=== PATIENT | female | born 1955 | race Caucasian/White ===

== ENCOUNTER → 2017-06-14 | Outpatient (CLI) | payer OTHER ==
[~2017-06-14] MED LIST: ACET325 PO; ADAL40PEN; AMOCLA500 PO; AMOCLA875 PO; ASACOL HD800 MG; ASACOL HD800 MG PO; ASPI81CH PO; ATOR20 PO; BASAGLAR K100 UNIT/1 SC; BUDE200IP; BUDE32NIS; CEFT400 PO; CEFU500 PO; CIPR500 PO; CIPR750 PO; CIPRO500 MG PO; COLAZOL PO; CYCL10 PO; Colace100 MG PO; DELZICOL400 MG PO; DIPATR PO; Dyazide 37.5-21 EACH PO; FEXO60 PO; FLUSAL2505 IH; FOLI1 PO; Flagyl500 MG PO; GATIFLOXACIN; HYDACE5 PO; HYOS.125 SL; Hair, Skin & N1 EACH PO; IBUP200; IRON PO; LEVEMIR FL100 UNIT/1; LEVFLO500 PO; LOVA40; Lialda1.2 GM PO; Lisinopril2.5 MG PO; Lovastatin20 MG PO; MESA400ER; MESA400ER PO; METCAR500 PO; METF500C PO; METO50 PO; METR500 PO; METTREX2.5 PO; MICARDIS/HCTZ; MOMENI; MULVITA PO; NAPR375 PO; NEBI10 PO; NEBI5 PO; Novolog Fl100 UNIT/1; ONDA4ODT PO; OXYACE5T PO; OXYC10ER PO; OXYC20ER PO; POTCHL10ER PO; PRED10 PO; PRED20 PO; PRED5 PO; PROM25 PO; Percocet 5-3251 EACH PO; Prednisone20 MG PO; RXOXYACE PO; RXPROM25S PR; Robaxin500 MG PO; Roxicodone5 MG PO; SULTRIDS PO; TRIHYD253A PO; TRIHYD253B PO; UCERIS9 MG PO; WATER PILL; Zofran8 MG PO; [UNRECOGNIZED DRUG - OTHER]; [UNRECOGNIZED DRUG - OTHER]; [UNRECOGNIZED DRUG - OTHER]; [UNRECOGNIZED DRUG - REMARK]; [UNRECOGNIZED DRUG - REMARK]
[2017-06-14 17:15] LABS: BASOPHILS ABSOLUTE AUTO 0.09 K/mm3 (0.00-0.23); BASOPHILS PERCENT AUTO 1 % (0-2); EOSINOPHILS ABSOLUTE AUTO 0.27 K/mm3 (0.00-0.68); EOSINOPHILS PERCENT AUTO 2 % (0-6); Hematocrit 32.1 % (33.0-51.0); Hemoglobin 9.8 g/dL (11.5-16.0); IMMATURE GRAN ABSOLUTE AUTO 0.08 K/mm3 (0.00-0.10); IMMATURE GRAN PERCENT AUTO 1 % (0-1); LYMPHOCYTES ABSOLUTE AUTO 4.17 K/mm3 (0.84-5.20); LYMPHOCYTES PERCENT AUTO 28 % (21-46); MONOCYTES PERCENT AUTO 9 % (4-13); Mean Corpuscular HGB 24.8 pg (26.0-34.0); Mean Corpuscular HGB Conc 30.5 g/dL (31.5-36.5); Mean Corpuscular Volume 81 fL (80-100); Mean Platelet Volume 9.7 fL (9.1-12.4); NEUTROPHILS ABSOLUTE AUTO 9.04 K/mm3 (1.96-9.15); NEUTROPHILS PERCENT AUTO 60 % (41-73); Platelet Count 502 K/mm3 (150-400); RDW Coefficient Variation 19.2 % (11.7-14.2); RDW Standard Deviation 55.9 fL (35.1-46.3); Red Blood Cell Count 3.95 M/mm3 (3.80-5.20); White Blood Cell Count 15.05 K/mm3 (4.00-11.30)
[2017-06-14 17:43] LABS: Anion Gap 10 mmol/L (6-16); Blood Urea Nitrogen 19 mg/dL (8-24); Bun/Creatinine Ratio 19.5 (12.0-20.0); CO2, Blood 23 mmol/L (21-32); Calcium, Blood 9.7 mg/dL (8.5-10.1); Chloride, Blood 102 mmol/L (98-108); Creatinine, Blood 0.97 mg/dL (0.40-1.00); Glomerular Filtration Rate >60 (60-); Glucose, Blood 114 mg/dL (70-99); Potassium, Blood 3.8 mmol/L (3.5-5.5); Sodium, Blood 135 mmol/L (136-145)
== END ==
LOC: OLS 16:11
PROVIDERS: Podiatrist Foot & Ankle Surgery
DX: Z01.818 Encounter for other preprocedural examination (principal); D17.9 Benign lipomatous neoplasm, unspecified; S93.492D Sprain of other ligament of left ankle, subsequent encounter
CPT/HCPCS: 36415; 80048; 85025

== ENCOUNTER 2017-06-23 | Day surgery (SDC) | END 2017-06-23 12:27 | disposition home or self-care (01) ==

== ENCOUNTER → 2017-10-16 | Outpatient (CLI) | payer OTHER ==
[~2017-10-16] MED LIST changes: -ASPI81CH PO; +BASAGLAR K100 UNIT/1; -BASAGLAR K100 UNIT/1 SC; -Dyazide 37.5-21 EACH PO; -Hair, Skin & N1 EACH PO; +Lisinopril2.5 MG; -Lisinopril2.5 MG PO; +METF500; -METF500C PO
[2017-10-16 13:21] LABS: Albumin, Blood 3.1 g/dL (3.4-5.0); Albumin/Globulin Ratio 0.5 (0.8-1.8); Bilirubin, Total 0.3 mg/dL (0.1-1.0); Calcium, Blood 9.4 mg/dL (8.5-10.1); Creatinine, Blood 1.72 mg/dL (0.40-1.00); Globulin, Blood 5.8 g/dL (2.2-4.0); Potassium, Blood 3.8 mmol/L (3.5-5.5); Total Protein, Blood 8.9 g/dL (6.4-8.2)
[2017-10-16 13:44] LABS: BASOPHILS ABSOLUTE AUTO 0.09 K/mm3 (0.00-0.23); BASOPHILS PERCENT AUTO 1 % (0-2); EOSINOPHILS ABSOLUTE AUTO 0.34 K/mm3 (0.00-0.68); EOSINOPHILS PERCENT AUTO 2 % (0-6); Hematocrit 28.8 % (33.0-51.0); Hemoglobin 8.6 g/dL (11.5-16.0); IMMATURE GRAN ABSOLUTE AUTO 0.27 K/mm3 (0.00-0.10); IMMATURE GRAN PERCENT AUTO 2 % (0-1); LYMPHOCYTES ABSOLUTE AUTO 4.57 K/mm3 (0.84-5.20); LYMPHOCYTES PERCENT AUTO 30 % (21-46); MONOCYTES ABSOLUTE AUTO 1.85 K/mm3 (0.16-1.47); MONOCYTES PERCENT AUTO 12 % (4-13); Mean Corpuscular HGB 21.8 pg (26.0-34.0); Mean Corpuscular HGB Conc 29.9 g/dL (31.5-36.5); Mean Corpuscular Volume 73 fL (80-100); NEUTROPHILS ABSOLUTE AUTO 8.32 K/mm3 (1.96-9.15); NEUTROPHILS PERCENT AUTO 54 % (41-73); Platelet Count 774 K/mm3 (150-400); RDW Standard Deviation 46.8 fL (35.1-46.3); Red Blood Cell Count 3.95 M/mm3 (3.80-5.20); White Blood Cell Count 15.44 K/mm3 (4.00-11.30)
== END ==
LOC: LAB EV 13:00 → LAB SHORT 13:00
PROVIDERS: Physician Assistant
DX: N39.0 Urinary tract infection, site not specified (principal)
CPT/HCPCS: 80053; 83690; 85025

== ENCOUNTER → 2017-10-17 | Outpatient (CLI) | payer OTHER ==
[2017-10-17 16:38] LABS: BASOPHILS ABSOLUTE AUTO 0.08 K/mm3 (0.00-0.23); BASOPHILS PERCENT AUTO 1 % (0-2); EOSINOPHILS ABSOLUTE AUTO 0.25 K/mm3 (0.00-0.68); EOSINOPHILS PERCENT AUTO 2 % (0-6); Hematocrit 26.3 % (33.0-51.0); Hemoglobin 8.1 g/dL (11.5-16.0); IMMATURE GRAN ABSOLUTE AUTO 0.44 K/mm3 (0.00-0.10); IMMATURE GRAN PERCENT AUTO 3 % (0-1); LYMPHOCYTES ABSOLUTE AUTO 3.79 K/mm3 (0.84-5.20); LYMPHOCYTES PERCENT AUTO 24 % (21-46); MONOCYTES ABSOLUTE AUTO 1.51 K/mm3 (0.16-1.47); MONOCYTES PERCENT AUTO 10 % (4-13); Mean Corpuscular HGB Conc 30.8 g/dL (31.5-36.5); Mean Corpuscular Volume 71 fL (80-100); Mean Platelet Volume 8.8 fL (9.1-12.4); NEUTROPHILS PERCENT AUTO 61 % (41-73); Platelet Count 665 K/mm3 (150-400); RDW Coefficient Variation 17.6 % (11.7-14.2); Red Blood Cell Count 3.69 M/mm3 (3.80-5.20); White Blood Cell Count 15.67 K/mm3 (4.00-11.30)
[2017-10-17 16:43] LABS: Bun/Creatinine Ratio 7.7 (12.0-20.0); Calcium, Blood 8.8 mg/dL (8.5-10.1); Creatinine, Blood 1.17 mg/dL (0.40-1.00); Potassium, Blood 3.7 mmol/L (3.5-5.5)
== END ==
LOC: LAB SHORT 16:34
PROVIDERS: Family Medicine
DX: K52.9 Noninfective gastroenteritis and colitis, unspecified (principal)
CPT/HCPCS: 80048; 85025

== ENCOUNTER 2017-11-14 00:11 | Day surgery (SDC) | payer OTHER ==
[~2017-11-14 00:11] MED LIST changes: -BASAGLAR K100 UNIT/1; +BASAGLAR K100 UNIT/1 SC; -Lisinopril2.5 MG; +Lisinopril2.5 MG PO; -METF500; +METF500C PO
[2017-11-14] MEDS ORDERED: ASPI81CH PO (14:00)
[2017-11-14] MEDS ORDERED: Dyazide 37.5-21 EACH PO (14:02)
[2017-11-14] MEDS ORDERED: Hair, Skin & N1 EACH PO (14:03)
== END 2017-11-14 14:37 | disposition home or self-care (01) ==
LOC: ATC 00:11
DX: D50.9 Iron deficiency anemia, unspecified (principal); E11.9 Type 2 diabetes mellitus without complications; Z79.899 Other long term (current) drug therapy; Z79.4 Long term (current) use of insulin; Z88.2 Allergy status to sulfonamides; Z88.1 Allergy status to other antibiotic agents; Z88.6 Allergy status to analgesic agent
CPT/HCPCS: 96365; J2916

== ENCOUNTER → 2017-12-07 | Outpatient (CLI) | payer OTHER ==
[~2017-12-07] MED LIST changes: +ASPI81CH PO; +Dyazide 37.5-21 EACH PO; +Hair, Skin & N1 EACH PO
== END | disposition home or self-care (01) ==
LOC: LAB SHORT 16:07 → LAB EV 16:07
DX: N39.0 Urinary tract infection, site not specified (principal)
CPT/HCPCS: 87077; 87086; 87186

== ENCOUNTER → 2019-02-27 | Outpatient (CLI) | payer OTHER | END | disposition home or self-care (01) | LOC: LAB 09:51 → LAB SHORT 09:51 | DX: R30.0 Dysuria (principal) | CPT/HCPCS: 87077; 87086; 87186 ==

== ENCOUNTER → 2019-07-08 | Outpatient (CLI) | payer OTHER | END | disposition home or self-care (01) | LOC: LAB SHORT 16:17 → LAB 16:17 | DX: R82.79 Other abnormal findings on microbiological examination of urine (principal) | CPT/HCPCS: 87077; 87086; 87186 ==

== ENCOUNTER → 2020-03-09 | Outpatient (CLI) | payer OTHER | LOC: LAB 12:02 → LAB SHORT 12:02 | DX: R82.998 Other abnormal findings in urine (principal) | CPT/HCPCS: 87077; 87086; 87186 ==

== ENCOUNTER → 2021-05-27 | Outpatient (CLI) | payer OTHER | LOC: LAB SHORT 15:26 | DX: R30.0 Dysuria (principal); R30.9 Painful micturition, unspecified | CPT/HCPCS: 87077; 87086; 87186 ==

== ENCOUNTER → 2021-08-28 | Outpatient (CLI) | payer OTHER ==
[2021-08-28 14:13] LABS: C DIFFICILE DNA NEGATIVE (Negative)
== END ==
LOC: LAB FUT 08:11 → LAB 08:11 → LAB FUT 08-27 11:40
PROVIDERS: Internal Medicine
DX: K51.011 Ulcerative (chronic) pancolitis with rectal bleeding (principal)
CPT/HCPCS: 87493

== ENCOUNTER 2021-09-06 13:48 | Emergency (ER) | payer OTHER ==
[~2021-09-06] VITALS: Ht 154.9 cm; Wt 85.3 kg
[2021-09-06 14:57] LABS: BASOPHILS PERCENT AUTO 0 % (0-2); EOSINOPHILS ABSOLUTE AUTO 0.03 K/mm3 (0.00-0.68); EOSINOPHILS PERCENT AUTO 0 % (0-6); Hematocrit 29.2 % (33.0-51.0); Hemoglobin 9.6 g/dL (11.5-16.0); IMMATURE GRAN ABSOLUTE AUTO 0.81 K/mm3 (0.00-0.10); IMMATURE GRAN PERCENT AUTO 3 % (0-1); LYMPHOCYTES ABSOLUTE AUTO 1.92 K/mm3 (0.84-5.20); LYMPHOCYTES PERCENT AUTO 8 % (21-46); MONOCYTES PERCENT AUTO 9 % (4-13); Mean Corpuscular HGB 29.2 pg (26.0-34.0); Mean Corpuscular HGB Conc 32.9 g/dL (31.5-36.5); Mean Corpuscular Volume 89 fL (80-100); Mean Platelet Volume 8.4 fL (9.1-12.4); NEUTROPHILS ABSOLUTE AUTO 18.69 K/mm3 (1.96-9.15); NEUTROPHILS PERCENT AUTO 79 % (41-73); Platelet Count 681 K/mm3 (150-400); RDW Coefficient Variation 13.7 % (11.7-14.2); RDW Standard Deviation 44.6 fL (35.1-46.3); Red Blood Cell Count 3.29 M/mm3 (3.80-5.20); White Blood Cell Count 23.65 K/mm3 (4.00-11.30)
[2021-09-06 15:02] LABS: Alanine Aminotransfer (ALT/SGP 37 U/L (12-78); Albumin/Globulin Ratio 0.5 (0.8-1.8); Alk Phos 113 U/L (50-136); Anion Gap 9 mmol/L (6-16); Aspartate Aminotrans (AST/SGOT 17 U/L (12-37); Bilirubin, Total 0.5 mg/dL (0.1-1.0); Blood Urea Nitrogen 19 mg/dL (8-24); Bun/Creatinine Ratio 20.9 (12.0-20.0); CO2, Blood 24 mmol/L (21-32); Calcium, Blood 9.8 mg/dL (8.5-10.1); Chloride, Blood 96 mmol/L (98-108); Creatinine, Blood 0.91 mg/dL (0.40-1.00); Globulin, Blood 5.5 g/dL (2.2-4.0); Glomerular Filtration Rate >60 (60-); Glucose, Blood 117 mg/dL (70-99); Sodium, Blood 129 mmol/L (136-145); Total Protein, Blood 8.5 g/dL (6.4-8.2)
[2021-09-06] MEDS ORDERED: Prednisone20 MG PO (19:58)
== END 2021-09-06 20:48 | disposition home or self-care (01) ==
LOC: ER 13:48
PROVIDERS: Physician Assistant
DX: K51.90 Ulcerative colitis, unspecified, without complications (principal); E87.1 Hypo-osmolality and hyponatremia; D64.9 Anemia, unspecified; D75.839 Thrombocytosis, unspecified; E11.9 Type 2 diabetes mellitus without complications; I10 Essential (primary) hypertension; Z79.82 Long term (current) use of aspirin; Z79.4 Long term (current) use of insulin; Z79.899 Other long term (current) drug therapy; Z88.8 Allergy status to other drugs, medicaments and biological substances; Z88.6 Allergy status to analgesic agent; Z88.1 Allergy status to other antibiotic agents; Z88.5 Allergy status to narcotic agent; Z91.018 Allergy to other foods; Z87.891 Personal history of nicotine dependence
CPT/HCPCS: 74177; 80053; 83690; 85025; J7030; Q9967

== ENCOUNTER 2021-09-08 10:07 | Inpatient (IN) | payer OTHER ==
[~2021-09-08] VITALS: Ht 154.9 cm; Wt 85.7 kg
[2021-09-08 11:15] LABS: BASOPHILS ABSOLUTE AUTO 0.07 K/mm3 (0.00-0.23); BASOPHILS PERCENT AUTO 0 % (0-2); EOSINOPHILS PERCENT AUTO 0 % (0-6); Hematocrit 26.3 % (33.0-51.0); Hemoglobin 8.9 g/dL (11.5-16.0); IMMATURE GRAN ABSOLUTE AUTO 0.72 K/mm3 (0.00-0.10); IMMATURE GRAN PERCENT AUTO 3 % (0-1); LYMPHOCYTES ABSOLUTE AUTO 0.47 K/mm3 (0.84-5.20); LYMPHOCYTES PERCENT AUTO 2 % (21-46); MONOCYTES PERCENT AUTO 9 % (4-13); Mean Corpuscular HGB 29.2 pg (26.0-34.0); Mean Corpuscular HGB Conc 33.8 g/dL (31.5-36.5); Mean Corpuscular Volume 86 fL (80-100); Mean Platelet Volume 8.3 fL (9.1-12.4); NEUTROPHILS ABSOLUTE AUTO 18.27 K/mm3 (1.96-9.15); NEUTROPHILS PERCENT AUTO 85 % (41-73); Platelet Count 561 K/mm3 (150-400); RDW Coefficient Variation 13.7 % (11.7-14.2); RDW Standard Deviation 42.9 fL (35.1-46.3); Red Blood Cell Count 3.05 M/mm3 (3.80-5.20); White Blood Cell Count 21.53 K/mm3 (4.00-11.30)
[2021-09-08 11:37] LABS: Albumin, Blood 2.6 g/dL (3.4-5.0); Albumin/Globulin Ratio 0.5 (0.8-1.8); Bilirubin, Total 0.6 mg/dL (0.1-1.0); Bun/Creatinine Ratio 13.3 (12.0-20.0); Calcium, Blood 8.9 mg/dL (8.5-10.1); Creatinine, Blood 0.75 mg/dL (0.40-1.00); Globulin, Blood 5.1 g/dL (2.2-4.0); Potassium, Blood 3.3 mmol/L (3.5-5.5); Total Protein, Blood 7.7 g/dL (6.4-8.2)
--- NOTE | 2021-09-08 17:07 | NUR ---
THE PATIENT WAS BROUGHT TO DAY SURGERY FOR HER PROCEDURE.
--- NOTE | 2021-09-08 18:02 | NUR ---
09/08/21 1802 Matt Doran History, Chart, Medications and Allergies reviewed before start of procedure. Patient confirms NPO status and agrees with scheduled surgery. 3-LEAD EKG REVIEWED WITH PHYSICIAN PRIOR TO START OF PROCEDURE. MONITOR INTACT WITH CONTINUOUS PULSE OXIMETRY AND INTERMITTENT BP. PATIENT DETERMINED TO BE ASA APPROPRIATE FOR PROPOFOL SEDATION PRIOR TO START OF PROCEDURE BY DR. OROURKE
[2021-09-08 19:04] LABS: Hematocrit 26.6 % (33.0-51.0); Hemoglobin 8.8 g/dL (11.5-16.0)
[2021-09-09] MEDS ORDERED: MESALAMINE 1.2 GM PO (01:55)
[2021-09-09] MEDS ORDERED: XELJANZ10 MG PO (01:55)
[2021-09-09] MEDS ORDERED: PRED20 PO (01:57)
[2021-09-09 05:09] LABS: BASOPHILS ABSOLUTE AUTO 0.03 K/mm3 (0.00-0.23); BASOPHILS PERCENT AUTO 0 % (0-2); EOSINOPHILS PERCENT AUTO 0 % (0-6); Hematocrit 25.4 % (33.0-51.0); Hemoglobin 8.3 g/dL (11.5-16.0); IMMATURE GRAN ABSOLUTE AUTO 0.64 K/mm3 (0.00-0.10); IMMATURE GRAN PERCENT AUTO 4 % (0-1); LYMPHOCYTES ABSOLUTE AUTO 0.37 K/mm3 (0.84-5.20); LYMPHOCYTES PERCENT AUTO 2 % (21-46); MONOCYTES ABSOLUTE AUTO 0.83 K/mm3 (0.16-1.47); MONOCYTES PERCENT AUTO 5 % (4-13); Mean Corpuscular HGB 29.2 pg (26.0-34.0); Mean Corpuscular HGB Conc 32.7 g/dL (31.5-36.5); Mean Corpuscular Volume 89 fL (80-100); Mean Platelet Volume 8.2 fL (9.1-12.4); NEUTROPHILS ABSOLUTE AUTO 15.65 K/mm3 (1.96-9.15); NEUTROPHILS PERCENT AUTO 89 % (41-73); Platelet Count 550 K/mm3 (150-400); RDW Coefficient Variation 13.9 % (11.7-14.2); RDW Standard Deviation 45.2 fL (35.1-46.3); Red Blood Cell Count 2.84 M/mm3 (3.80-5.20); White Blood Cell Count 17.52 K/mm3 (4.00-11.30)
[2021-09-09 05:40] LABS: Albumin, Blood 2.4 g/dL (3.4-5.0); Albumin/Globulin Ratio 0.5 (0.8-1.8); Bilirubin, Total 0.5 mg/dL (0.1-1.0); Bun/Creatinine Ratio 15.1 (12.0-20.0); C-REACTIVE PROTEIN, EXT RANGE 17.9 mg/dL (0.000-0.300); Calcium, Blood 8.5 mg/dL (8.5-10.1); Creatinine, Blood 0.66 mg/dL (0.40-1.00); Globulin, Blood 4.6 g/dL (2.2-4.0); Magnesium, Blood 2.5 mg/dL (1.6-2.4); Potassium, Blood 4.1 mmol/L (3.5-5.5)
--- NOTE | 2021-09-09 05:47 | NUR ---
SHIFT SUMMARY PT AOX4. REPORTS MORE PAIN ON HER BACK (CHRONIC), MANAGED WITH FENTANYL X1 T/O SHIFT LAST NIGHT. PT ALSO C/O NAUSEA AT THE BEGINNING OF SHIFT, MEDICATED WITH ZOFRAN ONCE T/O SHIFT. PT SLEPT GOOD OVERNIGHT. KCL AND MAG WAS INFUSED LAST NIGHT. CBG CHANGED TO AC/HS. HEPARIN AND SOLUMEDROL ADMINSTERED AT MIDNIGHT. TOLERATING PO INTAKE. DENIES N/V THIS MORNING. IV FLUIDS INFUSING. PT HAD BM, APPEARS TO BE BROWN/DARK BROWN LIQ STOOL WITH SOME TINGED OF BLOOD. STOOL ALSO APPEARS TO HAVE SOME SMALL TISSUE MIX WITH LIQ BM. CALL LIGHT WTIHIN REACH. WILL PROVIDE REPORT TO ONCOMING NURSE.
--- NOTE | 2021-09-09 18:08 | NUR ---
SHIFT SUMMARY: PATIENT ALERT AND ORIENTED X4. SHE HAS BEEN IN CONSTANT PAIN THIS SHIFT IN HER LOWER BACK. SHE WAS MEDICATED WITH FENTANYL AND A LIDOCAINE PATCH. SHE STATED THAT THE FENTANYL DID NOT WORK BUT THE PATCH WAS HELPING A LITTLE. PATIENT HAD 3 SMALL BOWEL MOVEMENTS WITH SCANT AMOUNTS OF BLOOD IN EACH. PATIENT STATED SHE HAD SOME NAUSEA AFTER EACH BOWEL MOVEMENT. SHE WAS MEDICATED WITH ZOFRAN WHICH SEEMED TO HELP. SHE IS COOPERATE WITH CARE AND WILL CONTINUE TO MONITOR. CALL LIGHT IN REACH. BED IN LOWEST POSITION.
--- NOTE | 2021-09-10 05:00 | NUR ---
AT SHIFT CHANGE DURING BEDSIDE REPORT, PT WAS NOTED TO HAVE UNMANAGED CHRONIC BACK PAIN. PT STATED SHE HAS HAD SUCCESS WITH PERCOCET IN THE PAST. MD CHILLER TECHNICIAN NOTIFIED AND NEW ORDERS PLACED. PT REPORTS RELIEF WITH MEDICATION. STOOL SAMPLE NEEDED, UNABLE TO COLLECT DUE TO URINE STOOL MIX IN HAT.
[2021-09-10 05:17] LABS: BASOPHILS ABSOLUTE AUTO 0.06 K/mm3 (0.00-0.23); BASOPHILS PERCENT AUTO 0 % (0-2); EOSINOPHILS PERCENT AUTO 0 % (0-6); Hematocrit 25.9 % (33.0-51.0); Hemoglobin 8.3 g/dL (11.5-16.0); IMMATURE GRAN ABSOLUTE AUTO 0.77 K/mm3 (0.00-0.10); IMMATURE GRAN PERCENT AUTO 5 % (0-1); LYMPHOCYTES ABSOLUTE AUTO 0.61 K/mm3 (0.84-5.20); LYMPHOCYTES PERCENT AUTO 4 % (21-46); MONOCYTES ABSOLUTE AUTO 1.35 K/mm3 (0.16-1.47); MONOCYTES PERCENT AUTO 9 % (4-13); Mean Corpuscular HGB 28.9 pg (26.0-34.0); Mean Corpuscular Volume 90 fL (80-100); Mean Platelet Volume 8.6 fL (9.1-12.4); NEUTROPHILS ABSOLUTE AUTO 12.71 K/mm3 (1.96-9.15); NEUTROPHILS PERCENT AUTO 82 % (41-73); Platelet Count 591 K/mm3 (150-400); RDW Coefficient Variation 14.2 % (11.7-14.2); RDW Standard Deviation 46.7 fL (35.1-46.3); Red Blood Cell Count 2.87 M/mm3 (3.80-5.20)
[2021-09-10 05:31] LABS: Albumin, Blood 2.4 g/dL (3.4-5.0); Anion Gap 8 mmol/L (6-16); Blood Urea Nitrogen 16 mg/dL (8-24); Bun/Creatinine Ratio 21.8 (12.0-20.0); CO2, Blood 26 mmol/L (21-32); Chloride, Blood 101 mmol/L (98-108); Creatinine, Blood 0.73 mg/dL (0.40-1.00); Glomerular Filtration Rate 91 (60-); Glucose, Blood 213 mg/dL (70-99); Phosphorus, Blood 1.8 mg/dL (2.5-4.9); Potassium, Blood 4.4 mmol/L (3.5-5.5); Sodium, Blood 135 mmol/L (136-145)
[2021-09-10 06:50] LABS: Percent Saturation 38.7 % (15.0-50.0)
[2021-09-10] MEDS ORDERED: PRED20 PO (10:29)
[2021-09-10] MEDS ORDERED: LIDO700A20 TOP (10:30)
[2021-09-10] MEDS ORDERED: ONDA4ODT MM (10:32)
[2021-09-10] MEDS ORDERED: LACT PO (10:33)
[2021-09-10] MEDS ORDERED: PANT20 PO (10:34)
[2021-09-10] MEDS ORDERED: Percocet 5-3251 EACH PO (10:35)
--- NOTE | 2021-09-10 12:20 | NUR ---
DISCHARGE SUMMARY PATIENT DISCHARGED HOME. DISCHARGE PAPERWORK REVIEWED WITH PATIENT AND FAMILY. ALL NEW MEDICATIONS REVIEWED AND PRESCRIPTIONS FAXED TO [facility]. PATIENT GIVEN HARD SCRIPT FOR PERCOCET. IV D/C'D. PATIENT AND ALL BELONGINGS TAKEN VIA WHEELCHAIR TO PERSONAL CAR AND TAKEN BY TOM.
[2021-09-10 13:08] LABS: Adenovirus F 40/41 Not Detected (NOT DETECT); Astrovirus Not Detected (NOT DETECT); Campylobacter Sp Not Detected (NOT DETECT); Cryptosporidium Not Detected (NOT DETECT); Cyclospora Cayetanensis Not Detected (NOT DETECT); E. Coli O157 Not Detected (NOT DETECT); Entamoeba Histolytica Not Detected (NOT DETECT); Enteroaggregative E. coli-EAEC Not Detected (NOT DETECT); Enteropathogenic E. coli-EPEC Not Detected (NOT DETECT); Enterotoxigenic E. coli-ETEC Not Detected (NOT DETECT); Giardia Lamblia Not Detected (NOT DETECT); Norovirus GI/GII Not Detected (NOT DETECT); Plesiomonas Shigelloides Not Detected (NOT DETECT); Rotavirus A Not Detected (NOT DETECT); Salmonella Sp Not Detected (NOT DETECT); Sapovirus Not Detected (NOT DETECT); Shiga Toxin-prod E. coli-STEC Not Detected (NOT DETECT); Shigella/Enteroin E. coli-EIEC Not Detected (NOT DETECT); Vibrio Cholerae Not Detected (NOT DETECT); Vibrio Sp Not Detected (NOT DETECT); Yersinia Enterocolitica Not Detected (NOT DETECT)
== END 2021-09-10 12:24 | disposition home or self-care (01) | DRG 386 ==
LOC: ER 10:07 → MEDS 13:02 → ENPENDDIS 09-10 10:22 → MEDS 09-10 12:24
PROVIDERS: Internal Medicine; Nurse Practitioner Acute Care; Physician Assistant; Student in an Organized Health Care Education/Training Program; ADMIT Internal Medicine
PROC: 0DBP8ZX Excision of Rectum, Via Natural or Artificial Opening Endoscopic, Diagnostic (ICD-10-PCS; 2021-09-08)
PROC: 0DB78ZX Excision of Stomach, Pylorus, Via Natural or Artificial Opening Endoscopic, Diagnostic (ICD-10-PCS; principal; 2021-09-08 18:45)
PROC: 0DBN8ZX Excision of Sigmoid Colon, Via Natural or Artificial Opening Endoscopic, Diagnostic (ICD-10-PCS; 2021-09-08 18:45)
DX: K51.511 Left sided colitis with rectal bleeding (principal); D62 Acute posthemorrhagic anemia; R65.10 Systemic inflammatory response syndrome (SIRS) of non-infectious origin without acute organ dysfunction; E87.1 Hypo-osmolality and hyponatremia; K42.9 Umbilical hernia without obstruction or gangrene; D75.839 Thrombocytosis, unspecified; K51.211 Ulcerative (chronic) proctitis with rectal bleeding; E11.65 Type 2 diabetes mellitus with hyperglycemia; E86.9 Volume depletion, unspecified; G89.29 Other chronic pain; M54.9 Dorsalgia, unspecified; E87.6 Hypokalemia; I10 Essential (primary) hypertension; E78.00 Pure hypercholesterolemia, unspecified; D72.829 Elevated white blood cell count, unspecified; E78.5 Hyperlipidemia, unspecified; T50.995A Adverse effect of other drugs, medicaments and biological substances, initial encounter; Z87.442 Personal history of urinary calculi; Z79.82 Long term (current) use of aspirin; Z98.890 Other specified postprocedural states; Z79.84 Long term (current) use of oral hypoglycemic drugs; Z90.49 Acquired absence of other specified parts of digestive tract; Z91.018 Allergy to other foods; Z88.8 Allergy status to other drugs, medicaments and biological substances; Z79.4 Long term (current) use of insulin; Z79.899 Other long term (current) drug therapy
CPT/HCPCS: 36415; 80053; 80069; 82652; 82728; 82947; 83540; 83550; 83735; 85014; 85018; 85025; 85651; 86140; 86850; 86900; 86901; 87507; 88305; 88341; 88342; 93005; 93010; 96365; 96375; 99285-25; A9270; J1644; J2405; J2704; J2765; J2920; J3010; J3475; J3480; J7030; J7120

== ENCOUNTER 2021-09-30 07:05 | Inpatient (IN) | payer OTHER ==
[~2021-09-30] VITALS: Ht 154.9 cm; Wt 83.1 kg
[~2021-09-30 07:05] MED LIST changes: +LACT PO; +LIDO700A20 TOP; +MESALAMINE 1.2 GM PO; +ONDA4ODT MM; +PANT20 PO; +XELJANZ10 MG PO
[2021-09-30 07:49] LABS: BASOPHILS ABSOLUTE AUTO 0.05 K/mm3 (0.00-0.23); BASOPHILS PERCENT AUTO 0 % (0-2); Hematocrit 27.5 % (33.0-51.0); Hemoglobin 8.9 g/dL (11.5-16.0); LYMPHOCYTES PERCENT AUTO 10 % (21-46); MONOCYTES ABSOLUTE AUTO 1.03 K/mm3 (0.16-1.47); MONOCYTES PERCENT AUTO 9 % (4-13); Mean Corpuscular HGB 27.1 pg (26.0-34.0); Mean Corpuscular HGB Conc 32.4 g/dL (31.5-36.5); Mean Corpuscular Volume 84 fL (80-100); Mean Platelet Volume 8.8 fL (9.1-12.4); NRBC ABSOLUTE 0.02 K/mm3 (0.00-0.02); NRBC Auto 0.2 /100 WBC (0.0-0.2); Platelet Count 521 K/mm3 (150-400); RDW Coefficient Variation 15.9 % (11.7-14.2); RDW Standard Deviation 48.4 fL (35.1-46.3); Red Blood Cell Count 3.28 M/mm3 (3.80-5.20); White Blood Cell Count 11.15 K/mm3 (4.00-11.30)
[2021-09-30 07:50] LABS: EOSINOPHILS ABSOLUTE AUTO 0.01 K/mm3 (0.00-0.68); EOSINOPHILS PERCENT AUTO 0 % (0-6); IMMATURE GRAN ABSOLUTE AUTO 0.21 K/mm3 (0.00-0.10); IMMATURE GRAN PERCENT AUTO 2 % (0-1); NEUTROPHILS ABSOLUTE AUTO 8.75 K/mm3 (1.96-9.15); NEUTROPHILS PERCENT AUTO 79 % (41-73)
[2021-09-30 08:45] LABS: Albumin, Blood 1.9 g/dL (3.4-5.0); Albumin/Globulin Ratio 0.4 (0.8-1.8); Bilirubin, Total 0.7 mg/dL (0.1-1.0); Bun/Creatinine Ratio 16.7 (12.0-20.0); Calcium, Blood 8.5 mg/dL (8.5-10.1); Creatinine, Blood 0.78 mg/dL (0.40-1.00); Potassium, Blood 2.8 mmol/L (3.5-5.5); Total Protein, Blood 6.9 g/dL (6.4-8.2)
[2021-09-30 09:16] LABS: Source, Urine Clean Catch
[2021-09-30 09:25] LABS: Bilirubin, Urine Neg (Neg); Blood, Urine 2+ (Neg); Glucose Qualitative, Urine Neg (Neg); Ketones, Urine Neg (Neg); Leukocyte Esterase, Urine 3+ (Neg); Nitrite, Urine Neg (Neg); Protein, Urine 1+ (Neg); Specific Gravity, Urine 1.005 (1.003-1.022); Urobilinogen, Urine NORM (Normal)
[2021-09-30 09:53] LABS: Appearance, Urine Clear (Clear); Color, Urine Pale Yellow (P-Yellow)
[2021-09-30 09:54] LABS: Bacteria Few /hpf; Squamous Epithelial Cells Few /hpf (Few)
--- NOTE | 2021-09-30 18:15 | NUR ---
PATIENT IS ALERT AND ORIENTED AND COOPERATIVE WITH CARE. 1PA STAND PIVOT TO THE BSC. C/O NAUSEA, MEDICATED PER EMAR. TACHYCARDIA AT 101 BPM. TOLERATING FULL LIQUID DIET. WILL CONTINUE TO MONITOR
--- NOTE | 2021-10-01 05:16 | NUR ---
PT A/O X 4. VS STABLE. PT COOPERATIVE WITH CARE. PT LAST BAG OF POTASSIUM REPLACEMENT FINISHED AWAITING AM LAB RESULTS. PT CBG WAS 246 PT GIVEN 2 UNITS HUMALOG PER Q6H S/S. IN EARLY AM PT BRIEFLY WAS [place] AND PT STATED STUFF IN EARS BUT NONE FOUND. DR. MIRANDA CONSULTED IN AM TO CHANGE SOLU MEDROL FROM 20MG TID TO 30MG Q12 FOR UC AND TO LOWER BLOOD GLUCOSE. PT IS RESTING WITH CALL LIGHT WITHIN REACH AND BED IN LOWEST POSITION.
--- NOTE | 2021-10-01 05:25 | NUR ---
BILINGUAL STUDENT TUTOR NOTES AND DOCUMENTS REVIEWED AND IN AGREEMENT
[2021-10-01] MEDS ORDERED: Lovastatin20 MG PO (07:53)
[2021-10-01] MEDS ORDERED: MESALAMINE800 MG PO (07:54)
[2021-10-01] MEDS ORDERED: DYAZIDE 37.5-21 EACH PO (07:55)
[2021-10-01] MEDS ORDERED: ORTIKOS9 M1 PO (07:56)
[2021-10-01 08:17] LABS: Albumin, Blood 1.6 g/dL (3.4-5.0); Albumin/Globulin Ratio 0.4 (0.8-1.8); Bilirubin, Total 0.4 mg/dL (0.1-1.0); Bun/Creatinine Ratio 20.3 (12.0-20.0); Calcium, Blood 7.8 mg/dL (8.5-10.1); Creatinine, Blood 0.59 mg/dL (0.40-1.00); Globulin, Blood 4.2 g/dL (2.2-4.0); Magnesium, Blood 1.7 mg/dL (1.6-2.4); Potassium, Blood 4.5 mmol/L (3.5-5.5); Prealbumin, Blood 6.1 mg/dL (20.0-40.0); Total Protein, Blood 5.8 g/dL (6.4-8.2)
--- NOTE | 2021-10-01 15:42 | NUR ---
SHIFT SUMMARY PT AWAKE AT START OF SHIFT, DURING SHIFT REPORT. RESTING QUIETLY IN BED. PT UP INDEPENDENTLY TO BSC NEEDED. PER LAY OUT CARPENTER, PT HAD BM WITH SM AMT OF BRIGHT RED BLOOD. DR LAY HERE A COUPLE OF TIMES TO SEE PT. PER PT, DR LAY TO TALK WITH DR MIRANDA ABOUT PT STATUS. PT ON FULL LIQUID DIET; TOLERATING WELL. PER REPORT, PT LIVING ALONE BUT TO D/C TO DAUGHTER AND SON'S HOUSE WHEN GOING HOME. DENIES FURTHER NEEDS. CALL LT IN REACH.
--- NOTE | 2021-10-01 21:35 | NUR ---
patient having multiple bouts of diarrhea. requesting Immodium which is what she takes at home when her UC flairs. Will call hospitalist with request
--- NOTE | 2021-10-02 06:25 | NUR ---
NELIDA HAD A RESTFUL NIGHT AFTER RECEIVING 4MG DOSE OF IMODIUM DUE TO A LARGE NUMBER OF COLITIS STOOLS OVER THE COURSE OF THE EVENING. ORDER STILL REMAINS IN EFFECT FOR 2MG DOSES AFTER EACH STOOL. PATIENT IS A&OX4 UP INDEPENDENTLY TO BEDSIDE COMMODE AND CALLS APPROPRIATELY FOR ASSIST WHEN NEEDED.
--- NOTE | 2021-10-02 19:12 | NUR ---
DAYSHIFT SUMMARY Pt reported loose stools, with scant bleeding. MD advanced diet to ADA/regular diet. After lunch pain c/o severe stomach pains. PRN tylenol given, pt refused dinner. CBGs high, >388 this shift, MD notifed. Lantus ordered, and Humalog SSI changed to high scale. Vitals stable.
--- NOTE | 2021-10-03 01:26 | NUR ---
PATIENT HAVING SIGNIFICANTLY MORE PAIN EVENING HAS PROGRESSED. UNRELIEVED BY TYLENOL, THE HOSPITALIST WAS CONTACTED AND ULTRAM WAS ORDERED AND GIVEN WITHOUT ANY RELIEF. FENTANYL WAS ORDERED AND GIVEN AROUND 0030 WHICH GAVE PATIENT ABOUT 30 MINUTES AT A TOLERABLE LEVEL OF LOWER ABDOMINAL PAIN, AND DIET WAS AGAIN CHANGED FROM SOLID FOODS TO FULL LIQUID. PATIENT IS NOW LYING IN BED HOLDING HER ABDOMEN. WILL TRY HEAT AND REPOSITIONING, AND IF UNSUCCESSFUL, WILL RECONTACT HOSPITALIST AGAIN.
--- NOTE | 2021-10-03 03:01 | NUR ---
PATIENT AWAKE AND MISERABLE WITH SEVERE LOWER ABD PAIN SINCE JUST AFTER DINNER. PATIENT HAD TRAMADOL, THEN FENTANYL. NEITHER PROVIDED ANY SIGNIFICANT RELIEF FOR THE PATIENT. ONE MG DILAUDID FINALLY PROVIDED PATIENT WITH ENOUGH RELIEF JUST BEFORE 0300, THAT SHE WAS ABLE TO RELAX AND FALL TO SLEEP. VITAL SIGNS REMAINED STABLE THROUGHOUT THE TIME OF HEIGHTENED DISCOMFORT. NEW ORDER ALSO RECEIVED TO CHANGE PATIENTS DIET BACK TO FULL LIQUID. IMODIUM GIVEN ONCE FOR DIARRHEA STOOL EARLY IN THE EVENING.
[2021-10-03 06:13] LABS: Hematocrit 29.5 % (33.0-51.0); Hemoglobin 8.8 g/dL (11.5-16.0); Mean Corpuscular HGB 26.4 pg (26.0-34.0); Mean Corpuscular HGB Conc 29.8 g/dL (31.5-36.5); NRBC ABSOLUTE 0.03 K/mm3 (0.00-0.02); NRBC Auto 0.1 /100 WBC (0.0-0.2); Platelet Count 482 K/mm3 (150-400); RDW Coefficient Variation 16.9 % (11.7-14.2); RDW Standard Deviation 54.1 fL (35.1-46.3); Red Blood Cell Count 3.33 M/mm3 (3.80-5.20); White Blood Cell Count 20.47 K/mm3 (4.00-11.30)
[2021-10-03 06:15] LABS: Mean Corpuscular Volume 89 fL (80-100)
[2021-10-03 06:34] LABS: Albumin, Blood 1.9 g/dL (3.4-5.0); Albumin/Globulin Ratio 0.4 (0.8-1.8); Bilirubin, Total 0.5 mg/dL (0.1-1.0); Bun/Creatinine Ratio 21.9 (12.0-20.0); Calcium, Blood 9.1 mg/dL (8.5-10.1); Creatinine, Blood 0.73 mg/dL (0.40-1.00); Globulin, Blood 4.7 g/dL (2.2-4.0); Potassium, Blood 4.6 mmol/L (3.5-5.5); Total Protein, Blood 6.6 g/dL (6.4-8.2)
[2021-10-03 17:48] LABS: Anti-Xa UFH, PHA Monitoring 0.25 IU/mL; International Normalized Ratio 1.15
--- NOTE | 2021-10-03 18:18 | NUR ---
DAYSHIFT SUMMARY Pt reporting severe pain this morning, reported pain through out ABD, and stated she has no had a bowel movement since yesterday. In bed all shift resting, appears fatigued, horse voice. MD at bedside to assess pt, and ordered ABD CT. PRN Dilaudid given IV Q4H, effective for pain management. CBGs continue to be >200, SSI given, and long acting Lantus given. Vitals stable at this time.
--- NOTE | 2021-10-03 18:22 | NUR ---
PT TRANSFERRED FOR SURGERY ABD CT showed bowel perforation and thrombus. Surgeon at bedside consulting with patient and her children, regarding options, decision made to have surgery. COVID tested, swab sent to lab. WBC is >20, and Lactic acid is 2.1 critical results reported to Dr. Savage. Pt left medical unit at 1800 and transported to surgery.
[2021-10-03 18:43] LABS: SARS-Cov-2 (COVID-19) PCR, MMC NEGATIVE (NEGATIVE)
--- NOTE | 2021-10-03 20:28 | NUR ---
10/03/212027 Adriane Woods PT ON SCHEDULED ANTIBIOTICS
[2021-10-04 03:00] LABS: Source, Urine Foley catheter
[2021-10-04 03:04] LABS: Appearance, Urine Hazy (Clear); Bilirubin, Urine Neg (Neg); Blood, Urine 1+ (Neg); Color, Urine Yellow (P-Yellow); Glucose Qualitative, Urine Neg (Neg); Ketones, Urine Neg (Neg); Leukocyte Esterase, Urine 2+ (Neg); Nitrite, Urine Neg (Neg); Protein, Urine 2+ (Neg); Specific Gravity, Urine 1.015 (1.003-1.022); Urobilinogen, Urine 2+ (Normal)
[2021-10-04 03:36] LABS: Bacteria Rare /hpf; Red Blood Cells, Urine 0-2 /hpf (0-2); Squamous Epithelial Cells Few /hpf (Few)
[2021-10-04 04:18] LABS: Albumin, Blood 1.4 g/dL (3.4-5.0); Albumin/Globulin Ratio 0.4 (0.8-1.8); Bilirubin, Total 0.9 mg/dL (0.1-1.0); Bun/Creatinine Ratio 28.3 (12.0-20.0); Calcium, Blood 8.4 mg/dL (8.5-10.1); Creatinine, Blood 0.92 mg/dL (0.40-1.00); Potassium, Blood 4.9 mmol/L (3.5-5.5); Total Protein, Blood 5.4 g/dL (6.4-8.2)
--- NOTE | 2021-10-04 05:41 | NUR ---
SHIFT SUMMARY ASSUMED CARE OF PT AT 2356, PT ARRIVED FROM OR IN UNIT BED. PT RESPONDING TO VERBAL STIMULI, MOANING, STATING SHE WAS IN 10/10 PAIN TO BACK AND ABDOMEN. DILAUDID PREANALYTICS TEAM LEAD INITIATED. PT STATED SHE HAS USED A PREANALYTICS TEAM LEAD IN THE PAST, PT EDUCATED ON HOW TO USE IT, SHE VERBALIZED UNDERSTANDING. PT CAME ON 5 LITERS OF 02 VIA NON-REABREATHER FROM OR, PT DOWNGRADED TO 2 LITERS OF O2 VIA NC, WITH SpO2 ABOVE 90% NO RESPRIATORY NOTED AT THIS TIME. PT HAS BEEN IN SINUS TACH WITH HR BETWEEN 110-120'S, PT'S HR CAN INCREASE INTO THE 130'S WITH ACTIVITY. BLOOD PRESSURE HAS REMAINED STABLE, AFEBRILE. UPON ARRIVAL TO UNIT TEMP WAS 96.0, BEAR HUGGER APPLIED AND HAS SINCE BEEN REMOVED CURRENT TEMP 98.4 VIA RECTAL PROBE. SHEEBA WOUND VAC DRESSING TO MIDLINE ABD IS C/D/I, . PT HAS 2 GUANAKO DRAINS, ONE TO THE RLQ AND ONE TO THE LLQ, BOTH COVERVED WITH TEGADERM, SEROSANGUANIOUS OUTPUT NOTED TO BOTH DRAINS. SMALL BLOOD CLOTS TO LEFT GUANAKO DRAIN. ILEOSTOMY IS MOIST AND PINK IN COLOR, NO OUTPUT NOTED. UNABLE TO HEAR BOWEL SOUNDS AT THIS TIME. VALIENTE PATENT AND DRAINING TO GRAVITY, YELLOW/CLOUDY URINE NOTED, 600 ML OUTPUT FOR THIS SHIFT. PT STARTED ON HEPARIN DRIP 18 UNITS PER HOUR. WILL CONTINUE TO MONITOR PT UNTIL REPORT IS GIVEN TO ONCOMING SHIFT.
[2021-10-04 06:32] LABS: Hematocrit 26.3 % (33.0-51.0); Mean Corpuscular HGB 26.7 pg (26.0-34.0); Mean Corpuscular HGB Conc 30.4 g/dL (31.5-36.5); Mean Corpuscular Volume 88 fL (80-100); NRBC ABSOLUTE 0.05 K/mm3 (0.00-0.02); NRBC Auto 0.1 /100 WBC (0.0-0.2); Platelet Count 299 K/mm3 (150-400); RDW Coefficient Variation 17.2 % (11.7-14.2); RDW Standard Deviation 53.4 fL (35.1-46.3); White Blood Cell Count 41.27 K/mm3 (4.00-11.30)
--- NOTE | 2021-10-04 07:00 | NUR ---
ASSUME CARE: I have assumed care of this patient.
--- NOTE | 2021-10-04 09:28 | NUR ---
PROVIDER PHONE CALL: Dr Moore called and updated on pt status and outdated orders. Telephone order for insulin change and chest xray.
[2021-10-04 09:29] LABS: Anti-Xa UFH, PHA Monitoring 0.65 IU/mL
--- NOTE | 2021-10-04 09:30 | NUR ---
RADIOLOGY REPORT: Rad report for chest xray states distal tip of central line in correct placement. Will d/c CVP monitoring and forgo repeat chest xray to verify placement.
--- NOTE | 2021-10-04 10:53 | NUR ---
CT ABDOMEN PELVIS: Discussed CT abdomen pelvis with radiology department. Planned for 1530 due to due pt receiving contrast yesterday. Dr Savage called and notified. She requests CT CATRACHO to rule out emboli; Dr Savage will call radiology.
--- NOTE | 2021-10-04 15:57 | NUR ---
CT REPORT: Dr Savage and Dr Moore called regarding CT results. Heparin continues running at 19 u/kg/hr.
--- NOTE | 2021-10-04 16:42 | NUR ---
UPDATE: Dr Moore at bedside updating pt and her daughter on CT findings.
--- NOTE | 2021-10-04 18:54 | NUR ---
SHIFT SUMMARY: Power glide placed in right upper arm for CT angio. Tripple lumen IJ without pressure injectable port. Neuro: pt alert to voice and oriented. she moves all extremities, but is very painful. Hydromorphone GEOPHYSICAL ENGINEER used PRN by patient; she was also given nurse doses today for CT transport. Cardiac: BP stable, HR NSR. Heparin currently running at 20 u/kg/hr. Respiratory: pt on 1L NC; clear/dim GI/: pt taking sips of water. Tan draining clear, demond urine. Skin: midline incision dressed with SHEEBA drain. No drainage noted on dressing. Bilateral lower abdominal vi drains; total drainage output of 180mls of serosanguenous drainage today. Psych/Social: family at bedside and supportive throughout the day. today
--- NOTE | 2021-10-04 20:15 | NUR ---
ASSUMED CARE. REPORT RECEIVED FROM TIMOTHY ROA. PT RESTING IN BED ATT. ON 02 1L/MIN VIA NC. PT ALERT AND ORIENTED. R/IJ IN PLACE, PG IN [place]. HEPARIN RUNNING AT 20 U/KG/HR, NS 75 ML/HR, LR TKO 10 ML/HR. ABDOMINAL INCISION DRESSING WITH SHEEBA WOUND VAC IN PLACE, BILATERAL LOWER GUANAKO DRAINS IN PLACE. VALIENTE DRAINING TO GRAVITY. PT MANAGING PAIN WITH DILAUDID SHEET METAL WORKER APPRENTICE, 0.2MG, 10 MIN LOCKOUT. WILL CONTINUE TO MONITOR.
[2021-10-05 05:21] LABS: Mean Corpuscular HGB 27.2 pg (26.0-34.0); Mean Corpuscular HGB Conc 31.1 g/dL (31.5-36.5); Mean Corpuscular Volume 88 fL (80-100); Mean Platelet Volume 9.4 fL (9.1-12.4); NRBC ABSOLUTE 0.04 K/mm3 (0.00-0.02); NRBC Auto 0.2 /100 WBC (0.0-0.2); Platelet Count 265 K/mm3 (150-400); RDW Coefficient Variation 17.6 % (11.7-14.2); RDW Standard Deviation 54.7 fL (35.1-46.3); Red Blood Cell Count 2.02 M/mm3 (3.80-5.20); White Blood Cell Count 21.47 K/mm3 (4.00-11.30)
[2021-10-05 05:29] LABS: Hematocrit 17.7 % (33.0-51.0)
[2021-10-05 05:30] LABS: Hemoglobin 5.5 g/dL (11.5-16.0)
[2021-10-05 05:45] LABS: Albumin, Blood 1.1 g/dL (3.4-5.0); Albumin/Globulin Ratio 0.3 (0.8-1.8); Bilirubin, Total 0.4 mg/dL (0.1-1.0); Bun/Creatinine Ratio 29.1 (12.0-20.0); Calcium, Blood 8.1 mg/dL (8.5-10.1); Creatinine, Blood 0.59 mg/dL (0.40-1.00); Globulin, Blood 3.7 g/dL (2.2-4.0); Magnesium, Blood 1.9 mg/dL (1.6-2.4); Potassium, Blood 4.4 mmol/L (3.5-5.5); Total Protein, Blood 4.8 g/dL (6.4-8.2)
--- NOTE | 2021-10-05 07:18 | NUR ---
SHIFT SUMMARY. PT RESTED IN BED THROUGHOUT SHIFT. ON ROOM AIR, SATS ABOVE 90%. ABDOMINAL DRESSING REMAINS IN PLACE, C/D/I. GUANAKO DRAINS IN PLACE BILATERAL LOWER QUADRANTS, ILLEOSTOMY IN PLACE. ORDERS OBTAINED FROM DR. KIRKPATRICK THIS AM FOR 2 UNITS PRBCS TO BE INFUSED DUE TO H&H 5.5, 17.7. FIRST UNIT CURRENTLY INFUSING. NS RUNNING AT 75 ML/HR. SEE SHIFT ASSESSMENT FOR FUTHER DETAILS. REPORT GIVEN TO TIMOTHY ROA.
--- NOTE | 2021-10-05 08:00 | NUR ---
PT A&O X4. REPORTS 8/10 LLQ PAIN-DESPITE HAVING UTILIZED ACID ETCH OPERATOR DILAUDID RECENTLY. MED WITH FENTANYL 50 MCG IVP X 1 FOR BREAK THROUGH PAIN. ECG SHOWS SR. SBP TRENING 120-130'S. 1ST UNIT OF PRBC'S INFUSING. DP/PT PULSES FAINT, BUT PALPABLE. TRACE, GENERALIZED EDEMA NOTED. PT NPO EXCEPT FOR SIPS OF WATER WITH MEDS DUE TO ABDOMINAL PAIN AND DROP IN H&H. MIDLINE SHEEBA DRESSING IS C/D/I. R QUAD OSTOMY APPLIANCE INTACT, STOMA PINK-NO NOTED STOOL. BT'S ABSENT. ED TO RIGHT AND LEFT QUAD TO BULB SUCTION-DRAINING PURULENT, SANGINOUS FLUID. VALIENTE TO BSD WITH SMALL AMOUNT OF CLEAR, YELLOW URINE OUTPUT. PT BATHED, LINEN CHANGE COMPLETED, AND PT PLACED IN NEW ICU BED-TOLERATED WELL. POSITIONED TO COMFORT ON RIGHT SIDE.
--- NOTE | 2021-10-05 09:00 | NUR ---
DR. RANGEL MADE AWARE THAT PT HAVING LLQ PAIN AND THAT H&H DROPPED OVER NIGHT. REPEAT H&H AFTER 2ND UNIT OF PRBC'S.
--- NOTE | 2021-10-05 10:00 | NUR ---
DR. PETERSON NOTIFIED OF LLQ PAIN AND DROP IN H&H-CT OF THE ABDOMEN HAS BEEN ORDERED.
--- NOTE | 2021-10-05 10:20 | NUR ---
PT TO CT OF ABDOMEN AND PELVIS 0 CONTRAST. TRANSPORT VIA BED WITH RN AT BEDSIDE. PT TOLERATED WELL. REPOSITONED TO COMFORT ON LEFT SIDE UPON RETURN TO ICU.
--- NOTE | 2021-10-05 12:00 | NUR ---
PT STATES THAT HER ABDOMINAL PAIN IS "MINIMAL" AT THIS TIME. HR 80'S SR. BP STABLE. THE 2ND UNIT OF PRBC'S IS COMPLETE. WILL REPEAT CBC IN 30 MINUTES. PT DAUGHTER AT [facility] UPDATE GIVEN.
--- NOTE | 2021-10-05 12:27 | NUR ---
DR. PETERSON HERE TO SEE PT. UPDATE GIVEN. DR. PETERSON REVIEWING CT RESULTS WITH PT AND HER DAUGHTER.
[2021-10-05 12:53] LABS: Hematocrit 26.2 % (33.0-51.0); Hemoglobin 8.4 g/dL (11.5-16.0); Mean Corpuscular HGB Conc 32.1 g/dL (31.5-36.5); Mean Corpuscular Volume 87 fL (80-100); Mean Platelet Volume 9.1 fL (9.1-12.4); NRBC ABSOLUTE 0.08 K/mm3 (0.00-0.02); NRBC Auto 0.4 /100 WBC (0.0-0.2); Platelet Count 267 K/mm3 (150-400); RDW Coefficient Variation 16.4 % (11.7-14.2); RDW Standard Deviation 51.7 fL (35.1-46.3); White Blood Cell Count 19.76 K/mm3 (4.00-11.30)
--- NOTE | 2021-10-05 14:00 | NUR ---
PT REPORTS 8/10 LLQ PAIN. MED WITH FENTANYL 50 MCG IVP X 1. PT THEN DANGLED AT THE BEDSIDE X 5 MINUTES-TOLERATED WELL. THEN PT BOOSTED UP IN BED AND EXTREMITIES ELEVATED ON PILLOWS.
--- NOTE | 2021-10-05 14:51 | NUR ---
DR. RANGEL GIVEN UPDATED VS AND LABS. HEPARIN DRIP RESUMED @ 20 UNITS/KG/HR NO BOLUS. PHARMACY DOSING HEPARIN-PTT @ 2100.
--- NOTE | 2021-10-05 16:00 | NUR ---
PT RESTING QUIETLY WHEN NOT DISTURBED. TOLERATING CLEAR LIQUID DIET WELL. OSTOMY APPLIANCE WITH GAS NOTED-BAG BURPED TO REMOVE GAS. VS WDL. PT NOW SURG/TELE STATUS. NO ACUTE DISTRESS NOTED AT THIS TIME.
--- NOTE | 2021-10-05 17:15 | NUR ---
PT REPORTS 8/10 LLQ PAIN. MED WITH FENTANYL 50 MCG IVP FOR BREAK THROUGH PAIN. MIDLINE SHEEBA DRESSING REMAINS C/D/I. PT REPOSITIONED TO COMFORT ON RIGHT SIDE. CBG 341 COVERED PER SLIDING SCALE. PT GIVEN A CUP OF HOT TEA PER HER REQUEST. BEDSIDE TABLE AND CALL LIGHT WITH IN REACH.
[2021-10-05 17:39] LABS: Hematocrit 27.1 % (33.0-51.0); Hemoglobin 8.7 g/dL (11.5-16.0)
--- NOTE | 2021-10-05 18:15 | NUR ---
PT RETURNED FROM PHOTO MACHINE OPERATOR. S/P ANGIO VIA RIGHT FEMORAL-ANGIOSEAL @ 1755. RIGHT FEMORAL SITE CLEAR-SOFT, NONTENDER, NO BLEEDING OR HEMATOMA. HR 90'S AFIB. SBP 120'S. PT DAUGHTER JAMIE GIVEN UPDATE.
[2021-10-06 04:22] LABS: Hematocrit 25.5 % (33.0-51.0); Hemoglobin 8.2 g/dL (11.5-16.0); Mean Corpuscular HGB 27.9 pg (26.0-34.0); Mean Corpuscular HGB Conc 32.2 g/dL (31.5-36.5); Mean Corpuscular Volume 87 fL (80-100); Mean Platelet Volume 9.7 fL (9.1-12.4); NRBC ABSOLUTE 0.08 K/mm3 (0.00-0.02); NRBC Auto 0.4 /100 WBC (0.0-0.2); Platelet Count 261 K/mm3 (150-400); RDW Coefficient Variation 16.5 % (11.7-14.2); RDW Standard Deviation 51.5 fL (35.1-46.3); Red Blood Cell Count 2.94 M/mm3 (3.80-5.20); White Blood Cell Count 18.88 K/mm3 (4.00-11.30)
[2021-10-06 04:37] LABS: Anti-Xa UFH, PHA Monitoring 0.69 IU/mL
[2021-10-06 04:48] LABS: Alanine Aminotransfer (ALT/SGP 28 U/L (12-78); Albumin, Blood 1.3 g/dL (3.4-5.0); Albumin/Globulin Ratio 0.3 (0.8-1.8); Alk Phos 171 U/L (50-136); Anion Gap 8 mmol/L (6-16); Aspartate Aminotrans (AST/SGOT 14 U/L (12-37); Bilirubin, Total 0.3 mg/dL (0.1-1.0); Blood Urea Nitrogen 16 mg/dL (8-24); Bun/Creatinine Ratio 32.3 (12.0-20.0); CO2, Blood 27 mmol/L (21-32); Calcium, Blood 8.2 mg/dL (8.5-10.1); Chloride, Blood 103 mmol/L (98-108); Globulin, Blood 3.8 g/dL (2.2-4.0); Glomerular Filtration Rate 104 (60-); Glucose, Blood 298 mg/dL (70-99); Magnesium, Blood 1.9 mg/dL (1.6-2.4); Phosphorus, Blood 2.3 mg/dL (2.5-4.9); Potassium, Blood 4.3 mmol/L (3.5-5.5); Sodium, Blood 138 mmol/L (136-145); Total Protein, Blood 5.1 g/dL (6.4-8.2); Triglycerides 279 mg/dL (30-160)
--- NOTE | 2021-10-06 05:09 | NUR ---
SHIFT SUMMARY PT ALERT AND ORIENTED X4. AFEBRILE. BP STABLE. HR SR 60-70'S. ON RA SATS OVER 90%, DESATS AT TIMES DURING SLEEP. C/O 8/10 LLQ PAIN EARLY EVENING, MEDICATED PER EMAR PLUS DILAUDID TUBING MILL SETTER PUMP. 60ML EMPTIED FROM ED DRAIN. VALIENTE DRAINING YELLOW URINE TO GRAVITY, 1850 OUT. HEP GTT INFUSING. TPN INFUSING. NS INFUSING. SLEEPING WITH CALL ALARM AT SIDE, WILL CONTINUE TO MONITOR UNTIL REPORT GIVEN TO DAYSHIFT RN
--- NOTE | 2021-10-06 09:37 | NUR ---
CARE OF PT ASSUMED AT 0700. PT SLEEPING, AROUSES TO VOICE, OX3. PT STATED SHE SLEPT WELL LAST NIGHT. PT C/O PAIN 8/10 TO LUQ. PT USING DILAUDID BRAND MARKETING MANAGER, FENTANYL 50MCG GIVEN FOR BREAK THROUGH PAIN. PT REPOSITIONED FOR CLEAR LIQUID BREAKFAST. PT HAS BOWEL TONES TO UPPER ABD. SLIGHTLY LEFT MIDLINE SHEEBA DRSG C/D/I. LOWER MIDLINE ILEOSTOMY BURPED, SCANT AMT OF ORANGE/BROWN LIQUID STOOL/TISSUE TO BAG. ED DRAINS FULL AND EMPTIED. BOTH W S/S FLUID, SOME TISSUE/MUCUS WELL. PT JOANIE CLEAR LIQ DIET. DR LAY IN TO SEE PT THIS AM. PT OOB TO CHAIR, SBA W O.T. PT HAS SOME FINE CRACKLES TO LLL, WILL HAVE PT USE I.S., DEEP BREATH, AND COUGH. HEP AT 21UNITS. CPN AT 47, NS AT 75. MEDICATIONS INFUSING VIA R IJ CL.
--- NOTE | 2021-10-06 09:56 | NUR ---
DR PETERSON IN TO SEE PT. LONG ACTING INSULIN INCREASED FROM 5 TO 10UNITS. DIET ADVANCED TO FULL LIQUIDS. PT TO BE TRANSFERED TO 231
--- NOTE | 2021-10-06 10:36 | NUR ---
PT C/O ABD PAIN 10/08. FENTANYL NOT DUE. 5MG OXY PO GIVEN. PT STATES SHE WAS TAKING THIS AT HOME AND DID WELL WITH IT. ABD BINDER PLACED. PEANUT BLANCHER CLEARED Polly GOOD RN.
--- NOTE | 2021-10-06 10:59 | NUR ---
TRANSFER: REPORT RECEIVED FROM CONSULTING TECHNICAL MANAGER. PT TO UNIT AT ABOUT 1050. PT TRANSFERED FROM WHEELCHAIR TO BED WITH SBA. PT A LITTLE SOB AND TIRED WITH MOVEMENT, RECOVERED WELL. VSS, BP SLIGHTLY ELEVATED WITH MOVEMENT, WILL RECHECK AFTER PT ABLE TO REST. PT IS A/O, SURGICAL SITES WNL, BINDER IN PLACE. VISUAL MERCHANDISER BUTTON GIVEN TO PT AND PUSHED BUTTON. HEPARIN INFUSING. NO ACUTE CONCERNS AT THIS TIME, PT INSTRUCTED CUSTOMS BROKER LIGHT USE. WILL CTM.
[2021-10-06 12:06] LABS: Anti-Xa UFH, PHA Monitoring 0.78 IU/mL
--- NOTE | 2021-10-06 12:52 | NUR ---
PER PHARMACY HEPARIN GTT INCREASED TO 26.4 ML/HR. VERIFIED WITH TIM ROA.
--- NOTE | 2021-10-06 16:49 | NUR ---
SUMMARY: NO ACUTE CHANGE SINCE TRANSFER. PT IS A/O, VSS. SURGICAL SITE WNL, ED'S EMPTIED..SEE CHARTED OUTPUT. MINIMAL OUTPUT FROM OSTOMY, DID NEED TO BE BURPED. REMOTELY PILOTED VEHICLE CONTROLLER SEEMS TO BE MANAGING PAIN WELL. CENTRAL LINE IJ DRESSING CHANGED TONIGHT USING STERILE TECHNIQUE, SKIN SURROUNDING INSERTION IS PINK/SENSITIVE AND BLANCHABLE. CONTINUING TO INFUSE CPN AND ANTIBIOTICS. CBG'S WNL TONIGHT. NO SAFETY CONCERNS AT THIS TIME, WILL CTM AND REPORT TO NOC RN.
--- NOTE | 2021-10-06 18:40 | NUR ---
HEPARIN RATE CHANGED TO 27.6 ML/HR, 23 UNITS/KG/HR AT THIS TIME. VERIFIED WITH JANINA CHAHAL.
--- NOTE | 2021-10-07 05:34 | NUR ---
PT IS A&OX4, MIS ASSIST OOB AND IS ABLE TO MAKE NEEDS KNOWN. ABD DRESSING IS HAS SMALL AMOUNTS OF PURULENT DRAINAGE, BILAT ED DRAINS PRODUCING MODERATE SEROSANG DRAINAGE, NO FLATUS NOTED IN OSTOMY BUT SMALL AMOUNT OF BROWN LIQUID STOOLS PRESENT. CPN RUNNING, HAS JOINERY MACHINIST PUMP WITH DILAUDID, PAIN WELL CONTROLLED. PT ON HEPARIN gtt, BAG CHANGED AND NO CHANGES NEEDE pTT IS WITHIN THERAPUTIC RANGE. RECIEVING IV ABX. LOSENED ABD BINDER PT COMPLAINED OF DISCOMFORT, RETIGENED IT AFTER PAIN MEDS HAD A CHANCE TO WORK. PT ABLE TO SLEEP THIS SHIFT, 6+ HOURS. WILL CONTINUE TO MONITOR THIS PT AND GIVE REPORT TO ONCOMING NURSE.
[2021-10-07 06:34] LABS: Hematocrit 30.1 % (33.0-51.0); Hemoglobin 9.7 g/dL (11.5-16.0); Mean Corpuscular HGB 27.9 pg (26.0-34.0); Mean Corpuscular HGB Conc 32.2 g/dL (31.5-36.5); Mean Corpuscular Volume 87 fL (80-100); Mean Platelet Volume 9.1 fL (9.1-12.4); NRBC ABSOLUTE 0.12 K/mm3 (0.00-0.02); NRBC Auto 0.4 /100 WBC (0.0-0.2); Platelet Count 318 K/mm3 (150-400); RDW Coefficient Variation 16.7 % (11.7-14.2); RDW Standard Deviation 51.4 fL (35.1-46.3); Red Blood Cell Count 3.48 M/mm3 (3.80-5.20); White Blood Cell Count 27.99 K/mm3 (4.00-11.30)
[2021-10-07 06:55] LABS: Albumin, Blood 1.6 g/dL (3.4-5.0); Albumin/Globulin Ratio 0.4 (0.8-1.8); Bilirubin, Total 0.5 mg/dL (0.1-1.0); Bun/Creatinine Ratio 42.9 (12.0-20.0); Calcium, Blood 8.7 mg/dL (8.5-10.1); Creatinine, Blood 0.47 mg/dL (0.40-1.00); Globulin, Blood 4.1 g/dL (2.2-4.0); Magnesium, Blood 1.9 mg/dL (1.6-2.4); Phosphorus, Blood 2.3 mg/dL (2.5-4.9); Potassium, Blood 4.4 mmol/L (3.5-5.5); Total Protein, Blood 5.7 g/dL (6.4-8.2)
[2021-10-07 07:39] LABS: Anti-Xa UFH, PHA Monitoring 0.88 IU/mL
[2021-10-07 16:40] LABS: Anti-Xa UFH, PHA Monitoring 1.06 IU/mL
--- NOTE | 2021-10-07 18:38 | NUR ---
PT UP IN CHAIR MUCH OF SHIFT. PT IS 1 PERSON TRANSFER WITH ENCOURAGEMENT. PT REPORTS PAIN IS CONTROLLED AT 5/10. CBG ELEVATED THIS SHIFT. OSTOMY WITH SMALL AMOUNT GREEN/BROWN MUSHY STOOL. ED X2 WITH SEROUS OUTPUT WITH FIBROUS STRANDS. NOC RN IS AWARE OF NEED FOR SHEEBA DRESSING CHANGE
--- NOTE | 2021-10-07 22:37 | NUR ---
DRESSING CHANGED, EMPTIED ED DRAINS. PT TOLERATED WELL. CALL LIGHT WITHIN REACH, BED LOW AND LOCKED.
[2021-10-08 02:40] LABS: Hematocrit 29.3 % (33.0-51.0); Hemoglobin 9.3 g/dL (11.5-16.0); Mean Corpuscular HGB 27.8 pg (26.0-34.0); Mean Corpuscular HGB Conc 31.7 g/dL (31.5-36.5); Mean Corpuscular Volume 88 fL (80-100); Mean Platelet Volume 9.4 fL (9.1-12.4); NRBC ABSOLUTE 0.06 K/mm3 (0.00-0.02); NRBC Auto 0.2 /100 WBC (0.0-0.2); Platelet Count 289 K/mm3 (150-400); RDW Coefficient Variation 16.7 % (11.7-14.2); RDW Standard Deviation 52.1 fL (35.1-46.3); Red Blood Cell Count 3.34 M/mm3 (3.80-5.20); White Blood Cell Count 29.65 K/mm3 (4.00-11.30)
[2021-10-08 02:57] LABS: Anti-Xa UFH, PHA Monitoring 0.64 IU/mL
[2021-10-08 02:59] LABS: Albumin, Blood 1.7 g/dL (3.4-5.0); Albumin/Globulin Ratio 0.5 (0.8-1.8); Bilirubin, Total 0.5 mg/dL (0.1-1.0); Bun/Creatinine Ratio 50.5 (12.0-20.0); Calcium, Blood 9.1 mg/dL (8.5-10.1); Creatinine, Blood 0.42 mg/dL (0.40-1.00); Globulin, Blood 3.6 g/dL (2.2-4.0); Phosphorus, Blood 3.5 mg/dL (2.5-4.9); Potassium, Blood 5.1 mmol/L (3.5-5.5); Total Protein, Blood 5.3 g/dL (6.4-8.2)
--- NOTE | 2021-10-08 05:41 | NUR ---
PT IS A&OX4, [place] AB[place] [facility] [place] AND CALLS APPROPRIATELY. DRESSING CHANGED THIS SHIFT AND APPLIANCE CHANGED, PT TOLERATED PROCEEDURE WELL. HEPARIN gtt INCREASED TO 23 UNITS/KG/HR AFTER PTT. OSTOMY PUTTING OUT SOFT BROWN STOOLS. PAIN CONTROLLED WITH MICROSOFT DYNAMICS MANAGER ARCHITECT DILAUDID. PT ON CPN NUTRITION AND FULL LIQUID DIET. BLOOD SUGARS ELEVATED. PT SLEEPS 6+ HOURS THIS SHIFT. WILL CONTINUE TO MONITOR THIS PT AND GIVE REPORT TO DAY SHIFT NIRSE.
--- NOTE | 2021-10-08 09:42 | NUR ---
DR PETERSON HERE AND PERFORMED DRESSING CHANGE TO ABD AND ED DRAIN #1. JACLYN INTACT TO ABD. SHEEBA DRESSING REMOVED AND ABD APPLIED
--- NOTE | 2021-10-08 17:30 | NUR ---
PT 1 PERSON STANDBY ASSIST TO GET OOB. PT REPORTS PAIN IS BETTER CONTROLLED EACH DAY. ABD DRESSING DRY AND INTACT. OSTOMY WITH MUSHY DARK BROWN OUTPUT, STOMA PINK, HEPARIN TO BE DISCONINUED AT 1800, CPN DISCONTINUED. PT JOANIE SOFT DIET WITHOUT NAUSEA- REPORTS EPISODES OF "SOUR STOMACH"
--- NOTE | 2021-10-09 04:34 | NUR ---
SHIFT SUMMARY PT HAS RESTED MOST OF THE NIGHT, HER PAIN HAS BEEN WELL CONTROLLED. SHE HAS BEEN UP AND AMBULATING [place] [facility] [place]IMAL ASSISTANCE. OSTOMY WITH SOFT BROWN FORMED STOOL. ED DRAINS IN PLACE WITH MODERATE AMOUNT OF SEROSANGUINEOUS OUTPUT. MAGAZINE HAND IN PLACE WITH CURRENT SETTINGS PER EMAR ORDERS. PT STILL HAVING SMALL AMOUNT OF RECTAL BLEEDING. PT ALSO HAS HAD SOME PINK TINGED URINE, PT REPORTS THIS IS NOT NEW FOR HER THAT SHE HAS HAD PINK TINGED URINE OFF AND ON FOR THE LAST WEEK. THE LAST TIME PT VOIDED IS WAS CLEAR YELLOW. VITALS ARE STABLE. PT TOLERATING PO INTAKE. IV ANTIBITOICS PER ORDERS. NO ACUTE CHANGES OVERNIGHT. BED IN LOWEST POSITION, CALL LIGHT WITHIN REACH.
[2021-10-09 05:33] LABS: Hematocrit 29.7 % (33.0-51.0); Hemoglobin 9.5 g/dL (11.5-16.0); Mean Corpuscular HGB 28.1 pg (26.0-34.0); Mean Corpuscular Volume 88 fL (80-100); Mean Platelet Volume 9.6 fL (9.1-12.4); Platelet Count 317 K/mm3 (150-400); RDW Coefficient Variation 17.3 % (11.7-14.2); RDW Standard Deviation 51.8 fL (35.1-46.3); Red Blood Cell Count 3.38 M/mm3 (3.80-5.20)
[2021-10-09 06:10] LABS: Albumin, Blood 1.8 g/dL (3.4-5.0); Albumin/Globulin Ratio 0.4 (0.8-1.8); Bilirubin, Total 0.5 mg/dL (0.1-1.0); Bun/Creatinine Ratio 30.9 (12.0-20.0); C-REACTIVE PROTEIN, EXT RANGE 2.95 mg/dL (0.000-0.300); Calcium, Blood 9.3 mg/dL (8.5-10.1); Creatinine, Blood 0.55 mg/dL (0.40-1.00); Potassium, Blood 4.5 mmol/L (3.5-5.5); Total Protein, Blood 5.8 g/dL (6.4-8.2)
--- NOTE | 2021-10-09 18:06 | NUR ---
SUMMARY UP TO CHAIR MOST OF THE DAY, TOLERATED WELL, AMBULATES TO THE BATHROOM WITH STANDBY ASSIST, USING PAPER MILL SUPERVISOR FOR PAIN CONTROL, DENIED ANY NAUSEA T/O THE DAY, REPORTS TOLERATING DIET FAIRLY WELL, ATTEMPTED TO DISCUSS OSTOMY CARE WITH PT, STATES SHE'S HAD AN OSTOMY BEFORE AND IS FAMILIAR WITH CARING FOR OSTOMY, PT ENCOURAGED TO EMPTY AND BURP OSTOMY BAG BUT PT IS REFUSING AT THIS TIME, STATES "I WILL HAVE A HOME HEALTH NURSE AT HOME AND MY DAUGHTER WILL HELP ME" NO ACUTE CHANGES THIS SHIFT.
--- NOTE | 2021-10-10 04:02 | NUR ---
SHIFT SUMMARY PT HAS RESTED MOST OF THE NIGHT, PT REPORTS THAT SHE IS HAVING LESS PAIN, SHE IS STILL USING HER DILAUDID JAIL GUARD, BUT NOT FREQUENTLY. PT STRENGTH IS RETURNING AND IS AMBULATING TO [facility]. EDEMA TO BLE WHICH ATTENDING IS AWARE PER PROVIDER NOTES. ED DRAINS X2 IN PLACE WITH A MODERATE AMOUNT OF DRAINAGE. OSTOMY CONTINUES TO PUT OUT SOFT BROWN YARI. APPETIE IS GOOD. VITALS ARE STABLE. BED IN LOWEST POSITION, CALL LIGHT WITHIN REACH.
--- NOTE | 2021-10-10 07:07 | NUR ---
EDEMA PT CONTINUES WITH EDEMA TO BLE, +3 LLE, +2 RLE. DAYSHIFT ATTENDING ALREADY AWARE PER NOTES. P STARTED COMPLANING OF MORE PAIN IN LLE, THERE IS REDNESS IN BOTH LEGS. PT TAKES DIURETICS AT HOME BUT THEY HAVE NOT BEEN RESTARTED AT THIS TIME AND THAT IS ACKMOWLEDGED IN DR NOTES ALSO. CALLED DR. MERCER TWICE TO NOTIFY THAT PT COMPLANING OF PAIN IN LEFT CALF DUE TO SWELLING TWICE. DID NOT RECEIVE A CALL BACK. WILL NOTIFY DAYSHIFT RN FOR FOLLOW UP. PT OTHERWISE ASYMPTOMATIC. LEGS ELEVATED ON PILLOWS TO DECREASE SWELLING.
[2021-10-10 08:52] LABS: BASOPHILS ABSOLUTE AUTO 0.03 K/mm3 (0.00-0.23); BASOPHILS PERCENT AUTO 0 % (0-2); EOSINOPHILS ABSOLUTE AUTO 0.08 K/mm3 (0.00-0.68); EOSINOPHILS PERCENT AUTO 0 % (0-6); Hematocrit 32.3 % (33.0-51.0); Hemoglobin 10.2 g/dL (11.5-16.0); IMMATURE GRAN ABSOLUTE AUTO 0.89 K/mm3 (0.00-0.10); IMMATURE GRAN PERCENT AUTO 4 % (0-1); LYMPHOCYTES PERCENT AUTO 7 % (21-46); MONOCYTES ABSOLUTE AUTO 1.01 K/mm3 (0.16-1.47); MONOCYTES PERCENT AUTO 5 % (4-13); Mean Corpuscular HGB 27.9 pg (26.0-34.0); Mean Corpuscular HGB Conc 31.6 g/dL (31.5-36.5); Mean Corpuscular Volume 89 fL (80-100); Mean Platelet Volume 9.5 fL (9.1-12.4); NEUTROPHILS PERCENT AUTO 83 % (41-73); Platelet Count 371 K/mm3 (150-400); RDW Coefficient Variation 17.6 % (11.7-14.2); RDW Standard Deviation 54.8 fL (35.1-46.3); Red Blood Cell Count 3.65 M/mm3 (3.80-5.20); White Blood Cell Count 21.21 K/mm3 (4.00-11.30)
[2021-10-10 09:09] LABS: Bun/Creatinine Ratio 25.2 (12.0-20.0); Creatinine, Blood 0.67 mg/dL (0.40-1.00); Magnesium, Blood 1.7 mg/dL (1.6-2.4); Potassium, Blood 4.1 mmol/L (3.5-5.5)
[2021-10-11 05:51] LABS: BASOPHILS ABSOLUTE AUTO 0.02 K/mm3 (0.00-0.23); BASOPHILS PERCENT AUTO 0 % (0-2); EOSINOPHILS ABSOLUTE AUTO 0.04 K/mm3 (0.00-0.68); EOSINOPHILS PERCENT AUTO 0 % (0-6); Hematocrit 30.5 % (33.0-51.0); Hemoglobin 9.6 g/dL (11.5-16.0); IMMATURE GRAN ABSOLUTE AUTO 0.37 K/mm3 (0.00-0.10); IMMATURE GRAN PERCENT AUTO 2 % (0-1); LYMPHOCYTES ABSOLUTE AUTO 1.16 K/mm3 (0.84-5.20); LYMPHOCYTES PERCENT AUTO 7 % (21-46); MONOCYTES ABSOLUTE AUTO 0.86 K/mm3 (0.16-1.47); MONOCYTES PERCENT AUTO 5 % (4-13); Mean Corpuscular HGB 27.9 pg (26.0-34.0); Mean Corpuscular HGB Conc 31.5 g/dL (31.5-36.5); Mean Corpuscular Volume 89 fL (80-100); Mean Platelet Volume 9.8 fL (9.1-12.4); NEUTROPHILS ABSOLUTE AUTO 15.45 K/mm3 (1.96-9.15); NEUTROPHILS PERCENT AUTO 86 % (41-73); Platelet Count 347 K/mm3 (150-400); RDW Coefficient Variation 17.4 % (11.7-14.2); RDW Standard Deviation 55.4 fL (35.1-46.3); Red Blood Cell Count 3.44 M/mm3 (3.80-5.20)
[2021-10-11 06:03] LABS: Albumin, Blood 2.1 g/dL (3.4-5.0); Anion Gap 7 mmol/L (6-16); Blood Urea Nitrogen 15 mg/dL (8-24); Bun/Creatinine Ratio 20.8 (12.0-20.0); CO2, Blood 31 mmol/L (21-32); Calcium, Blood 9.2 mg/dL (8.5-10.1); Chloride, Blood 97 mmol/L (98-108); Creatinine, Blood 0.72 mg/dL (0.40-1.00); Glomerular Filtration Rate 93 (60-); Glucose, Blood 130 mg/dL (70-99); Phosphorus, Blood 3.5 mg/dL (2.5-4.9); Potassium, Blood 4.1 mmol/L (3.5-5.5); Sodium, Blood 135 mmol/L (136-145)
--- NOTE | 2021-10-11 06:31 | NUR ---
POD 8 S/P COLECTOMY+OSTOMY. PT VSS T/O NIGHT. INCISION CDI. OSTOMY PUTTING OUT BROWN STOOL, PT REP BURPING APPLIANCE PRN. PT DENIED N/V. PT VOIDING LARGE AMTS OF URINE. BLE ELEVATED IN BED, PT REP LEGS FEEL LESS TIGHT AND THAT SHE IS MOVING A LITTLE BETTER THIS AM. PAIN MGD W/PO PAIN MEDS, PT USED 3 MG TOTAL FROM WIRE MACHINE CUTTER FOR BREAKTHROUGH PAIN. PT UP INDEP TO BSC. OSTOMY EDUCATION CONT PRN.
--- NOTE | 2021-10-11 18:37 | NUR ---
SHIFT SUMMARY PATIENT ALERT COOPERATIVE THROUGHOUT SHIFT. IJ DC'D. FULLING MILL OPERATOR DC'D. SBA UP TO COMMODE. MIDLINE ABD BENITO C/D/I. 2 ED DRAINS. MEDICATED FOR PAIN PER EMAR. PLAN TO CONTINUE PT/OT. ROUTINE ABX.
--- NOTE | 2021-10-12 05:31 | NUR ---
POD 9 S/P COLECTOMY+ILEOSTOMY. PT VSS. INCISION MACHINE WORKER, NO REDNESS/DRNG NOTED. STOMA W/SOFT BROWN STOOL OUTPUT. PT VOIDING URINE W/O DIFFICULTY. PAIN MGD W/1 OXYCODONE W/REP RELIEF. PT JOANIE PO, DENIED N/V. 2+ EDEMA TO BLE, CAP REFILL WNL. PT INDEP UP TO BSC, REP FEELING STRONGER, BUT NOT READY TO AMBULATE FARTHER. OSTOMY EDUCATION CONT.
[2021-10-12 07:01] LABS: Albumin, Blood 1.9 g/dL (3.4-5.0); Anion Gap 6 mmol/L (6-16); Blood Urea Nitrogen 17 mg/dL (8-24); Bun/Creatinine Ratio 19.5 (12.0-20.0); CO2, Blood 30 mmol/L (21-32); Calcium, Blood 9.3 mg/dL (8.5-10.1); Chloride, Blood 97 mmol/L (98-108); Creatinine, Blood 0.87 mg/dL (0.40-1.00); Glomerular Filtration Rate 74 (60-); Glucose, Blood 193 mg/dL (70-99); Phosphorus, Blood 3.5 mg/dL (2.5-4.9); Potassium, Blood 4.4 mmol/L (3.5-5.5); Sodium, Blood 133 mmol/L (136-145)
[2021-10-12 07:02] LABS: BASOPHILS ABSOLUTE AUTO 0.01 K/mm3 (0.00-0.23); BASOPHILS PERCENT AUTO 0 % (0-2); EOSINOPHILS ABSOLUTE AUTO 0.01 K/mm3 (0.00-0.68); EOSINOPHILS PERCENT AUTO 0 % (0-6); Hematocrit 28.4 % (33.0-51.0); Hemoglobin 9.1 g/dL (11.5-16.0); IMMATURE GRAN ABSOLUTE AUTO 0.17 K/mm3 (0.00-0.10); IMMATURE GRAN PERCENT AUTO 1 % (0-1); LYMPHOCYTES ABSOLUTE AUTO 0.72 K/mm3 (0.84-5.20); LYMPHOCYTES PERCENT AUTO 5 % (21-46); MONOCYTES ABSOLUTE AUTO 0.54 K/mm3 (0.16-1.47); MONOCYTES PERCENT AUTO 3 % (4-13); Mean Corpuscular HGB 28.3 pg (26.0-34.0); Mean Corpuscular Volume 88 fL (80-100); Mean Platelet Volume 10.3 fL (9.1-12.4); NEUTROPHILS ABSOLUTE AUTO 14.39 K/mm3 (1.96-9.15); NEUTROPHILS PERCENT AUTO 91 % (41-73); Platelet Count 367 K/mm3 (150-400); RDW Coefficient Variation 17.1 % (11.7-14.2); RDW Standard Deviation 54.4 fL (35.1-46.3); Red Blood Cell Count 3.22 M/mm3 (3.80-5.20); White Blood Cell Count 15.84 K/mm3 (4.00-11.30)
--- NOTE | 2021-10-12 18:31 | NUR ---
SHIFT SUMMARY HAD A BUSY MORNING, WORKED w/ BOTH PT & OT WHICH SHE AMBULATED IN HALLWAY w/ BOTH. REPORTS SHE IS STARTING TO FEEL STRONGER. EATING BETTER THIS AFTERNOON THAN THIS AM. OSTOMY w/ GOOD OUTPUT. IV LASIX SUCCESSFUL; INCREASE IN URINE OUTPUT & SLIGHT DECREASE IN BLE EDEMA.
[2021-10-13 06:34] LABS: BASOPHILS ABSOLUTE AUTO 0.01 K/mm3 (0.00-0.23); BASOPHILS PERCENT AUTO 0 % (0-2); EOSINOPHILS ABSOLUTE AUTO 0.01 K/mm3 (0.00-0.68); EOSINOPHILS PERCENT AUTO 0 % (0-6); Hematocrit 29.7 % (33.0-51.0); Hemoglobin 9.4 g/dL (11.5-16.0); IMMATURE GRAN ABSOLUTE AUTO 0.11 K/mm3 (0.00-0.10); IMMATURE GRAN PERCENT AUTO 1 % (0-1); LYMPHOCYTES ABSOLUTE AUTO 0.98 K/mm3 (0.84-5.20); LYMPHOCYTES PERCENT AUTO 9 % (21-46); MONOCYTES ABSOLUTE AUTO 0.62 K/mm3 (0.16-1.47); MONOCYTES PERCENT AUTO 6 % (4-13); Mean Corpuscular HGB Conc 31.6 g/dL (31.5-36.5); Mean Corpuscular Volume 88 fL (80-100); Mean Platelet Volume 10.2 fL (9.1-12.4); NEUTROPHILS ABSOLUTE AUTO 9.52 K/mm3 (1.96-9.15); NEUTROPHILS PERCENT AUTO 85 % (41-73); Platelet Count 436 K/mm3 (150-400); RDW Coefficient Variation 17.2 % (11.7-14.2); RDW Standard Deviation 55.5 fL (35.1-46.3); Red Blood Cell Count 3.36 M/mm3 (3.80-5.20); White Blood Cell Count 11.25 K/mm3 (4.00-11.30)
[2021-10-13 06:40] LABS: Albumin, Blood 2.1 g/dL (3.4-5.0); Anion Gap 7 mmol/L (6-16); Blood Urea Nitrogen 19 mg/dL (8-24); Bun/Creatinine Ratio 23.2 (12.0-20.0); CO2, Blood 30 mmol/L (21-32); Calcium, Blood 9.5 mg/dL (8.5-10.1); Chloride, Blood 97 mmol/L (98-108); Creatinine, Blood 0.82 mg/dL (0.40-1.00); Glomerular Filtration Rate 79 (60-); Glucose, Blood 157 mg/dL (70-99); Phosphorus, Blood 2.4 mg/dL (2.5-4.9); Potassium, Blood 4.3 mmol/L (3.5-5.5); Sodium, Blood 134 mmol/L (136-145); Triglycerides 301 mg/dL (30-160)
--- NOTE | 2021-10-13 07:42 | NUR ---
POD 10 S/P COLECTOMY+ILEOSTOMY. PT VSS, INCISION CDI. PAIN MGD W/PO PAIN MEDS W/REP RELIEF. OSTOMY PUTTING OUT SOFT BROWN STOOL, EDUCATION CONT PRN, PT BURPING APPLIANCE INDEP. EDEMA TO BLE IMPROVING, PT REP LEGS LESS TIGHT AND PAINFUL. PT APPEARS TO BE MOVING BETTER, IS INDEP TO BSC, REP EAGER TO MOBILIZE FURTHER.
--- NOTE | 2021-10-13 17:32 | NUR ---
SUMMARY: PT IS POD10 COLECTOMY WITH ILEOSTOMY. A/O, VSS. PT INDEPENDENT IN ROOM. SURGICAL SITE WNL. SMALL AMT SOFT BROWN STOOL FROM ILEOSTOMY, PRODUCING GAS EMPTIED X1. ED DRAINS WNL WITH MINIMAL OUTPUT, DID NOT EMPTY THIS SHIFT. PT HAS DENIED PAIN THIS SHIFT. REPORTED BEING TIRED TODAY AND SLEPT THIS AFTERNOON. ABLE TO WALK IN HALLS WITH PT/OT. LOPRESSOR DOSE HELD TONURI PER EMAR PERAMETERS, THESE PERAMETERS WERE VERIFIED WITH DR. BALTAZAR DELANEY AT 1600 PRIOR TO GIVING MED. NO ACUTE SAFETY CONCERNS WILL CTM AND REPORT TO NOC JANINA.
[2021-10-14 06:31] LABS: Hematocrit 26.8 % (33.0-51.0); Hemoglobin 8.5 g/dL (11.5-16.0)
[2021-10-14 06:50] LABS: Albumin, Blood 2.1 g/dL (3.4-5.0); Anion Gap 8 mmol/L (6-16); Blood Urea Nitrogen 21 mg/dL (8-24); Bun/Creatinine Ratio 30.4 (12.0-20.0); CO2, Blood 28 mmol/L (21-32); Calcium, Blood 8.9 mg/dL (8.5-10.1); Chloride, Blood 101 mmol/L (98-108); Creatinine, Blood 0.69 mg/dL (0.40-1.00); Glomerular Filtration Rate 96 (60-); Glucose, Blood 187 mg/dL (70-99); Phosphorus, Blood 2.7 mg/dL (2.5-4.9); Potassium, Blood 3.6 mmol/L (3.5-5.5); Sodium, Blood 137 mmol/L (136-145)
--- NOTE | 2021-10-14 08:27 | NUR ---
pt laying in bed on her side, states she is in pain from getting up to bsc, a/ox3, cooperative with care, follows commands well, lungs are clear dim in bases, on r/a, resp even and unlabored, no cough noted, hrr, bounding, 2+edema noted to left foot, 1+ to right foot, ppp+2, cap refill <3sec, vs stable, afebrile, iv site is clear and patent, btx3, ostomy in place draining brown soft stool, skin has midline with shekhar, paul an call light in reach.
[2021-10-14 11:28] LABS: BASOPHILS ABSOLUTE AUTO 0.01 K/mm3 (0.00-0.23); BASOPHILS PERCENT AUTO 0 % (0-2); EOSINOPHILS ABSOLUTE AUTO 0.01 K/mm3 (0.00-0.68); EOSINOPHILS PERCENT AUTO 0 % (0-6); Hematocrit 29.1 % (33.0-51.0); Hemoglobin 9.3 g/dL (11.5-16.0); IMMATURE GRAN ABSOLUTE AUTO 0.13 K/mm3 (0.00-0.10); IMMATURE GRAN PERCENT AUTO 1 % (0-1); LYMPHOCYTES ABSOLUTE AUTO 1.38 K/mm3 (0.84-5.20); LYMPHOCYTES PERCENT AUTO 9 % (21-46); MONOCYTES PERCENT AUTO 5 % (4-13); Mean Corpuscular HGB 28.5 pg (26.0-34.0); Mean Corpuscular Volume 89 fL (80-100); Mean Platelet Volume 9.9 fL (9.1-12.4); NEUTROPHILS ABSOLUTE AUTO 13.38 K/mm3 (1.96-9.15); NEUTROPHILS PERCENT AUTO 86 % (41-73); Platelet Count 528 K/mm3 (150-400); RDW Coefficient Variation 17.4 % (11.7-14.2); RDW Standard Deviation 55.8 fL (35.1-46.3); Red Blood Cell Count 3.26 M/mm3 (3.80-5.20); White Blood Cell Count 15.61 K/mm3 (4.00-11.30)
--- NOTE | 2021-10-14 14:58 | NUR ---
pt complaining of pain, did work with PT/OT, medicated for pain, resting in bed at this time. call light in reach.
--- NOTE | 2021-10-14 18:22 | NUR ---
doing much better this evening than the start of her day, she is getting up to the bathroom, medicated once for pain, Dr. Tapia, removed her monica drains, no further changes this shift. call light in reach.
--- NOTE | 2021-10-15 07:38 | NUR ---
SUMMARY PT REPORTED FEELING BETTER TONIGHT.VOIDING WITHOUT DIFF. OSTOMY PATENT. TOLERATING PO.HOPING FOR DISCHARGE HOME TODAY.
[2021-10-15 09:15] LABS: BASOPHILS PERCENT AUTO 0 % (0-2); EOSINOPHILS ABSOLUTE AUTO 0.03 K/mm3 (0.00-0.68); EOSINOPHILS PERCENT AUTO 0 % (0-6); Hematocrit 25.4 % (33.0-51.0); Hemoglobin 7.9 g/dL (11.5-16.0); IMMATURE GRAN ABSOLUTE AUTO 0.09 K/mm3 (0.00-0.10); IMMATURE GRAN PERCENT AUTO 1 % (0-1); LYMPHOCYTES ABSOLUTE AUTO 0.99 K/mm3 (0.84-5.20); LYMPHOCYTES PERCENT AUTO 12 % (21-46); MONOCYTES ABSOLUTE AUTO 0.61 K/mm3 (0.16-1.47); MONOCYTES PERCENT AUTO 7 % (4-13); Mean Corpuscular HGB 27.8 pg (26.0-34.0); Mean Corpuscular HGB Conc 31.1 g/dL (31.5-36.5); Mean Corpuscular Volume 89 fL (80-100); Mean Platelet Volume 9.6 fL (9.1-12.4); NEUTROPHILS PERCENT AUTO 80 % (41-73); Platelet Count 403 K/mm3 (150-400); RDW Coefficient Variation 17.2 % (11.7-14.2); RDW Standard Deviation 55.8 fL (35.1-46.3); Red Blood Cell Count 2.84 M/mm3 (3.80-5.20); White Blood Cell Count 8.52 K/mm3 (4.00-11.30)
[2021-10-15 09:25] LABS: Calcium, Blood 8.3 mg/dL (8.5-10.1); Creatinine, Blood 0.67 mg/dL (0.40-1.00); Potassium, Blood 3.4 mmol/L (3.5-5.5)
[2021-10-15] MEDS ORDERED: CANASA1000 MG PR (13:29)
[2021-10-15] MEDS ORDERED: Prednisone10 MG PO (13:31)
[2021-10-15] MEDS ORDERED: ELIQUIS5 M2 PO (13:31)
[2021-10-15] MEDS ORDERED: OXAYDO5 M1 PO (13:32)
[2021-10-15] MEDS ORDERED: AMOCLA875 PO (13:33)
--- NOTE | 2021-10-15 14:06 | NUR ---
DISCHARGE SUMMARY PATIENT ALERT AND ORIENTED THROUGHOUT SHIFT. TOLERATING REGULAR DIET AND LIQUIDS. PAIN MANAGED WITHOUT MEDS. VOIDING WELL. GOOD OUTPUT IN OSTOMY. SELF-MANAGED. DISCHARGE ORDERS OBTAINED. DISCHARGE EDUCATION GIVEN ON NEW RXS, WOUND CARE, OSTOMY CARE, AND FOLLOW UP APPTS. PATIENT LEFT UNIT AT 1410 VIA WHEELCHAIR FOR HOME.
== END 2021-10-15 14:05 | disposition home or self-care (01) | DRG 329 ==
LOC: ER 07:05 → SURS 12:43 → MEDS 12:43 → ICUE 12:43 → MEDS 15:17 → ICUE 10-03 17:44 → SURS 10-06 10:46
PROVIDERS: Emergency Medicine; Internal Medicine; Nurse Practitioner Acute Care; Surgery; ADMIT Internal Medicine
PROC: 0DTG0ZZ Resection of Left Large Intestine, Open Approach (ICD-10-PCS; principal; 2021-09-30)
PROC: 0DTF0ZZ Resection of Right Large Intestine, Open Approach (ICD-10-PCS; 2021-09-30)
PROC: 0D1B0Z4 Bypass Ileum to Cutaneous, Open Approach (ICD-10-PCS; 2021-09-30)
PROC: 0D9W0ZZ Drainage of Peritoneum, Open Approach (ICD-10-PCS; 2021-09-30)
PROC: 30233N1 Transfusion of Nonautologous Red Blood Cells into Peripheral Vein, Percutaneous Approach (ICD-10-PCS; 2021-10-05)
DX: K51.518 Left sided colitis with other complication (principal); K65.1 Peritoneal abscess; K63.1 Perforation of intestine (nontraumatic); E43 Unspecified severe protein-calorie malnutrition; I74.09 Other arterial embolism and thrombosis of abdominal aorta; R64 Cachexia; E87.1 Hypo-osmolality and hyponatremia; D62 Acute posthemorrhagic anemia; N39.0 Urinary tract infection, site not specified; R65.10 Systemic inflammatory response syndrome (SIRS) of non-infectious origin without acute organ dysfunction; Z20.822 Contact with and (suspected) exposure to COVID-19; E87.6 Hypokalemia; B96.20 Unspecified Escherichia coli [E. coli] as the cause of diseases classified elsewhere; E88.09 Other disorders of plasma-protein metabolism, not elsewhere classified; E86.0 Dehydration; I10 Essential (primary) hypertension; E78.5 Hyperlipidemia, unspecified; E66.9 Obesity, unspecified; R05.9 Cough, unspecified; E11.9 Type 2 diabetes mellitus without complications; R60.0 Localized edema; K43.2 Incisional hernia without obstruction or gangrene; Z88.5 Allergy status to narcotic agent; Z68.32 Body mass index [BMI] 32.0-32.9, adult; Z88.8 Allergy status to other drugs, medicaments and biological substances; Z91.018 Allergy to other foods; Z79.82 Long term (current) use of aspirin; Z79.84 Long term (current) use of oral hypoglycemic drugs; Z79.899 Other long term (current) drug therapy; Z98.890 Other specified postprocedural states; Z90.49 Acquired absence of other specified parts of digestive tract; Z87.891 Personal history of nicotine dependence
CPT/HCPCS: 36415; 36430; 71045; 74174; 74176; 74177; 80048; 80053; 80069; 81001; 82040; 82728; 82947; 83540; 83550; 83605; 83690; 83735; 84100; 84134; 84478; 84630; 85014; 85018; 85025; 85027; 85520; 85610; 85651; 85730; 86140; 86850; 86900; 86901; 86923; 87070; 87075; 87077; 87086; 87186; 87205; 88307; 93005; 93010; 93970; 96361; 96365; 96366; 96375; 97110; 97116; 97161; 97166; 97530; 97535; 99285-25; A9270; C1751; C9113; J0610; J0696; J1170; J1644; J1650; J1815; J1940; J2370; J2405; J2543; J2704; J2920; J2930; J3010; J3411; J3475; J3480; J7030; J7040; J7512; P9016; Q9967; U0004

== ENCOUNTER 2021-10-28 11:57 | Inpatient (IN) | payer OTHER ==
[~2021-10-28] VITALS: Ht 154.9 cm; Wt 74.6 kg
[~2021-10-28 11:57] MED LIST changes: +CANASA1000 MG PR; +DYAZIDE 37.5-21 EACH PO; +ELIQUIS5 M2 PO; +MESALAMINE800 MG PO; +ORTIKOS9 M1 PO; +OXAYDO5 M1 PO; +Prednisone10 MG PO
[2021-10-28 12:49] LABS: BASOPHILS ABSOLUTE AUTO 0.05 K/mm3 (0.00-0.23); BASOPHILS PERCENT AUTO 0 % (0-2); EOSINOPHILS ABSOLUTE AUTO 0.04 K/mm3 (0.00-0.68); EOSINOPHILS PERCENT AUTO 0 % (0-6); Hematocrit 35.2 % (33.0-51.0); Hemoglobin 11.5 g/dL (11.5-16.0); IMMATURE GRAN ABSOLUTE AUTO 0.23 K/mm3 (0.00-0.10); IMMATURE GRAN PERCENT AUTO 2 % (0-1); LYMPHOCYTES ABSOLUTE AUTO 1.22 K/mm3 (0.84-5.20); LYMPHOCYTES PERCENT AUTO 9 % (21-46); MONOCYTES ABSOLUTE AUTO 0.77 K/mm3 (0.16-1.47); MONOCYTES PERCENT AUTO 6 % (4-13); Mean Corpuscular HGB 27.9 pg (26.0-34.0); Mean Corpuscular HGB Conc 32.7 g/dL (31.5-36.5); Mean Corpuscular Volume 85 fL (80-100); Mean Platelet Volume 9.6 fL (9.1-12.4); NEUTROPHILS ABSOLUTE AUTO 10.71 K/mm3 (1.96-9.15); NEUTROPHILS PERCENT AUTO 82 % (41-73); Platelet Count 467 K/mm3 (150-400); RDW Coefficient Variation 15.9 % (11.7-14.2); RDW Standard Deviation 49.7 fL (35.1-46.3); Red Blood Cell Count 4.12 M/mm3 (3.80-5.20); White Blood Cell Count 13.02 K/mm3 (4.00-11.30)
[2021-10-28 13:16] LABS: Albumin, Blood 3.3 g/dL (3.4-5.0); Albumin/Globulin Ratio 0.7 (0.8-1.8); Bilirubin, Total 0.7 mg/dL (0.1-1.0); Bun/Creatinine Ratio 12.7 (12.0-20.0); Calcium, Blood 10.3 mg/dL (8.5-10.1); Creatinine, Blood 7.38 mg/dL (0.40-1.00); Globulin, Blood 4.8 g/dL (2.2-4.0); Potassium, Blood 6.8 mmol/L (3.5-5.5); Total Protein, Blood 8.1 g/dL (6.4-8.2)
[2021-10-28 15:38] LABS: Albumin, Blood 2.3 g/dL (3.4-5.0); Anion Gap 16 mmol/L (6-16); Blood Urea Nitrogen 89 mg/dL (8-24); Bun/Creatinine Ratio 13.4 (12.0-20.0); CO2, Blood 15 mmol/L (21-32); Calcium, Blood 8.6 mg/dL (8.5-10.1); Chloride, Blood 93 mmol/L (98-108); Creatinine, Blood 6.64 mg/dL (0.40-1.00); Glomerular Filtration Rate 6 (60-); Glucose, Blood 123 mg/dL (70-99); Potassium, Blood 6.2 mmol/L (3.5-5.5); Sodium, Blood 124 mmol/L (136-145)
--- NOTE | 2021-10-28 18:36 | NUR ---
PCU ADMIT / SHIFT SUMMARY PT BROUGHT TO PCU-13 BY VARINDER FROM ER @ APPROX 1630. PT A&O X4, SLID OVER FROM RNEY TO PCU BED BY 3 STAFF MEMBERS. PT DAUGHTER AT BEDSIDE. MD BRYANT & ICU CAMPUS SUPERVISOR TO PT RM TO PLACE CENTRAL LINE. PORTABLE CXR DONE ONCE LINE PALCED. PT AGREEABLE TO HAVE DIALYSIS WHEN ABLE. ILEOSTOMY BAG C/D/I, PT DAUGHTER REPORTS CHANGING DRESSING THIS AM. PT DAUGHTER ALSO REPORTING PT NOT HAVING VOIDED X3D. NS GTT & NA BICARB GTT INFUSING PER ORDERS. VSS. MONITOR SHOWING ST, HR 110's-120's. SPO2 > 92% ON RA.
[2021-10-28 21:33] LABS: Calcium, Blood 8.4 mg/dL (8.5-10.1); Creatinine, Blood 6.3 mg/dL (0.40-1.00); Potassium, Blood 4.7 mmol/L (3.5-5.5)
[2021-10-28 23:07] LABS: Source, Urine Clean Catch
[2021-10-28 23:15] LABS: Bilirubin, Urine Neg (Neg); Blood, Urine 2+ (Neg); Glucose Qualitative, Urine 1+ (Neg); Ketones, Urine Neg (Neg); Leukocyte Esterase, Urine 3+ (Neg); Nitrite, Urine Neg (Neg); Protein, Urine 1+ (Neg); Urobilinogen, Urine NORM (Normal)
[2021-10-28 23:22] LABS: Appearance, Urine Hazy (Clear); Bacteria Few /hpf; Color, Urine Pale Yellow (P-Yellow); Red Blood Cells, Urine 0-2 /hpf (0-2); Squamous Epithelial Cells Not Seen /hpf (Few); White Blood Cells, Urine 50-100 /hpf (0-5)
[2021-10-28 23:23] LABS: Transitional Epithelial Cells Few /hpf (0-Rare)
[2021-10-29 06:04] LABS: Hematocrit 23.9 % (33.0-51.0); Hemoglobin 8.1 g/dL (11.5-16.0)
--- NOTE | 2021-10-29 06:04 | NUR ---
SHIFT SUMMARY ASSUMED CARE OF PT AT 1900. PT IS A/OX4. HEART SOUNDS REGULAR BUT TACHY. PT TOUCHED 130-140 WHEN GETTING UP TO BEDSIDE COMMODE AT START OF SHIFT BUT TRENDED DOWN AFTER GIVEN NIGHT TIME MEDICINES AND WHEN SHE WAS SLEEPING. LUNGS SOUNDS CLEAR. HAS SOME SOB WITH ACTIVITY. PT ABD HAS HEALING WOUND ON IT. PICTURES IN CHART; NEW DRESSINGS APPLIED. ILEOSTOMY DRAINING GREEN LIQUID STOOL. PT WAS A 1P SBA TO BSC. PT HAD NO NEW COMPLAINTS BUT IS WORRIED ABOUT GETTING DIALYSIS. DR HILTON CALLED AND ASKED IF PT NEEDED DIALYSIS LAST NIGHT BUT SAID TO KEEP TRENDING LABS AND WILL REASESS IN AM.
[2021-10-29 06:17] LABS: Albumin, Blood 2.2 g/dL (3.4-5.0); Anion Gap 14 mmol/L (6-16); Blood Urea Nitrogen 79 mg/dL (8-24); CO2, Blood 25 mmol/L (21-32); Calcium, Blood 8.2 mg/dL (8.5-10.1); Chloride, Blood 89 mmol/L (98-108); Creatinine, Blood 5.64 mg/dL (0.40-1.00); Glomerular Filtration Rate 8 (60-); Glucose, Blood 137 mg/dL (70-99); Magnesium, Blood 1.4 mg/dL (1.6-2.4); Phosphorus, Blood 4.2 mg/dL (2.5-4.9); Potassium, Blood 3.8 mmol/L (3.5-5.5); Sodium, Blood 128 mmol/L (136-145)
--- NOTE | 2021-10-29 12:50 | NUR ---
LOW BP / CALL TO MD CALL TO MD HILTON TO REPORT PT BP 73/44, MAP 54. PT ASYMPTOMATIC. MD W/ ORDER TO GIVE 500ML NS IV BOLUS X1.
--- NOTE | 2021-10-29 17:21 | NUR ---
SHIFT SUMMARY PT A&O X4. BP LOW, ONE TIME 500 ML NS IV BOLUS GIVEN THIS SHIFT. BP IMPROVED, BUT STILL LOW, SEE VS. PT DENIES LIGHTHEADEDNESS/DIZZINESS WHILE LAYING DOWN & WHEN GETTING UP TO BEDSIDE COMMODE. OTHERWISE VSS. SPO2 > 92% ON RA. MONITOR SHOWING ST, HR 100-110's. ILEOSTOMY W/ SEMIFORMED ESPINOZA STOOL THIS SHIFT. PT VOIDING. NS GTT INFUSING PER ORDERS.
[2021-10-30 05:28] LABS: Hemoglobin 8.4 g/dL (11.5-16.0)
[2021-10-30 05:49] LABS: Albumin, Blood 2.4 g/dL (3.4-5.0); Anion Gap 11 mmol/L (6-16); Blood Urea Nitrogen 54 mg/dL (8-24); Bun/Creatinine Ratio 19.3 (12.0-20.0); CO2, Blood 26 mmol/L (21-32); Chloride, Blood 97 mmol/L (98-108); Glomerular Filtration Rate 18 (60-); Glucose, Blood 126 mg/dL (70-99); Magnesium, Blood 1.2 mg/dL (1.6-2.4); Phosphorus, Blood 2.5 mg/dL (2.5-4.9); Potassium, Blood 3.6 mmol/L (3.5-5.5); Sodium, Blood 134 mmol/L (136-145)
--- NOTE | 2021-10-30 05:56 | NUR ---
DROP FORGE HAND SUMMARY PT AAOX4 AND PLEASANT. INDEPENDENT TO BSC. PT VOIDING WELL TONIGHT. KIDNEY FUNCTION IMPROVED ACROSS THE BOARD WITH MORNING LABS TONIGHT. BP HAS BEEN IMPROVED TONIGHT WELL WITH ALL SBP >100. OTHER VSS, WILL CONTINUE TO MONITOR.
--- NOTE | 2021-10-30 16:42 | NUR ---
SHIFT SUMMARY PT CONTINUES TO BE A&O X4. VSS. SPO2 > 92% ON RA. MONITOR SHOWING ST, HR 100-120's. PT W/ EPISODE OF HR INCREASE TO 170's THIS AM WHEN GETTING UP TO BSC. PT HR THEN DECREASE BACK DOWN TO 120's WHEN BACK IN BED RESTING. PT VOIDING WELL T/O SHIFT. ILEOSTOMY W/ LIQUID + SEMI FORMED ESPINOZA/BROWN STOOL. NS GTT INFUSING PER ORDERS.
--- NOTE | 2021-10-31 04:44 | NUR ---
CARE TRANSFER: GAVE REPORT TO [facility] RN. PATIENT TO TRANSFER TO [facility]. NO ADVERSE EVENTS THIS SHIFT.
[2021-10-31 04:47] LABS: BASOPHILS ABSOLUTE AUTO 0.03 K/mm3 (0.00-0.23); BASOPHILS PERCENT AUTO 0 % (0-2); EOSINOPHILS ABSOLUTE AUTO 0.09 K/mm3 (0.00-0.68); EOSINOPHILS PERCENT AUTO 1 % (0-6); Hematocrit 24.5 % (33.0-51.0); Hemoglobin 7.8 g/dL (11.5-16.0); IMMATURE GRAN ABSOLUTE AUTO 0.13 K/mm3 (0.00-0.10); IMMATURE GRAN PERCENT AUTO 1 % (0-1); LYMPHOCYTES ABSOLUTE AUTO 0.98 K/mm3 (0.84-5.20); LYMPHOCYTES PERCENT AUTO 10 % (21-46); MONOCYTES ABSOLUTE AUTO 0.47 K/mm3 (0.16-1.47); MONOCYTES PERCENT AUTO 5 % (4-13); Mean Corpuscular HGB Conc 31.8 g/dL (31.5-36.5); Mean Corpuscular Volume 88 fL (80-100); Mean Platelet Volume 9.4 fL (9.1-12.4); NEUTROPHILS ABSOLUTE AUTO 8.54 K/mm3 (1.96-9.15); NEUTROPHILS PERCENT AUTO 83 % (41-73); Platelet Count 268 K/mm3 (150-400); RDW Coefficient Variation 16.2 % (11.7-14.2); RDW Standard Deviation 52.5 fL (35.1-46.3); Red Blood Cell Count 2.79 M/mm3 (3.80-5.20); White Blood Cell Count 10.24 K/mm3 (4.00-11.30)
--- NOTE | 2021-10-31 05:21 | NUR ---
SHIFT SUMMARY: BP SOFT, AFEBRILE, DENIES CHEST PAIN OR SOB, HR 90-110S. INDEPEDENT IN ROOM. MEDICATED PER EMAR, NS INFUSING TO TRIALYSIS CATH. NO ADVERSE EVENTS THIS SHIFT. BED LOW WITH CALL LIGHT IN REACH. WILL CONTINUE TO MONITOR AND REPORT TO ONCOMING RN.
[2021-10-31 09:49] LABS: Albumin, Blood 1.9 g/dL (3.4-5.0); Anion Gap 10 mmol/L (6-16); Blood Urea Nitrogen 25 mg/dL (8-24); Bun/Creatinine Ratio 21.9 (12.0-20.0); CO2, Blood 24 mmol/L (21-32); Calcium, Blood 7.4 mg/dL (8.5-10.1); Chloride, Blood 100 mmol/L (98-108); Creatinine, Blood 1.14 mg/dL (0.40-1.00); Glomerular Filtration Rate 53 (60-); Glucose, Blood 193 mg/dL (70-99); Magnesium, Blood 0.9 mg/dL (1.6-2.4); Phosphorus, Blood 1.2 mg/dL (2.5-4.9); Sodium, Blood 134 mmol/L (136-145)
--- NOTE | 2021-10-31 18:06 | NUR ---
END OF SHIFT SUMMARY: PATINET ON ASSUMPTION OF CARE ONE HUNDREDS TO ONETEENS, PATIENT RECIEVING IV FLUIDS THROUGH TRIALYSIS CATH, RCW IV WAS LEAKING, LEFT AC FLUSHED GREAT. PATIENT IN NO SIGN OF ACUTE DISTRESS. PATIENT RECIEVED DOSE OF METOPROLOL IN TH EAM AND DROPPED TO LOWEST OF THE DAY OF 88 OH, THIS WAS ALSO IN ADDITIONAL TO RECIEVING K+ Mg+ AND PHOS. PATIENT TOLERATED ALL THE ELECTROLYTES WELL AND IS LOOKING MUCH BETTER. NO RECKS OF ELECTROLYTES PREFORMED UNTIL THIS AM. PATIENT ENDORSES FEELING BETTER THAN THIS AM, DENIES CHEST PAIN/PRESSURE, OR SOB. PATIENT HAD AN OSTOMY CHANGE PREFORMED BY DAVEY ROA AND PATIENT WILDLIFE MANAGEMENT PROFESSOR, MED CHANGES PLEASE SEE EMAR. PATIENT IN NO SIGN OF ACUTE DISTRESS WILL CONTINUE TO MONITOR UNTIL SHIFT CHANGE.
[2021-11-01 04:32] LABS: Hematocrit 21.8 % (33.0-51.0); Hemoglobin 6.8 g/dL (11.5-16.0)
[2021-11-01 04:53] LABS: Albumin, Blood 1.7 g/dL (3.4-5.0); Anion Gap 9 mmol/L (6-16); Blood Urea Nitrogen 18 mg/dL (8-24); Bun/Creatinine Ratio 22.2 (12.0-20.0); CO2, Blood 23 mmol/L (21-32); Calcium, Blood 7.1 mg/dL (8.5-10.1); Chloride, Blood 103 mmol/L (98-108); Creatinine, Blood 0.81 mg/dL (0.40-1.00); Glomerular Filtration Rate 81 (60-); Glucose, Blood 117 mg/dL (70-99); Magnesium, Blood 1.2 mg/dL (1.6-2.4); Phosphorus, Blood 1.4 mg/dL (2.5-4.9); Potassium, Blood 3.5 mmol/L (3.5-5.5); Sodium, Blood 135 mmol/L (136-145)
--- NOTE | 2021-11-01 05:02 | NUR ---
SHIFT SUMMARY: PATIENT VS WNL FOR PATIENT ON RA. PATIENT DENIES SOB, PAIN OR DISCOMFORT. INDEPENDENT IN ROOM USING BSC. ILEOSTOMY DRAINING ESPINOZA, SMOOTH OUTPUT. MEDICATED PER EMAR WITH FLUIDS RUNNINGS. CENTRAL LINE FLUSHES AND DRAWS. ELECTROLYTES ARE IMPROVED THIS AM OVER YESTERDAY AM, BUT HGB IS 6.8. PLAN IS TO D/C TODAY. BED LOW WITH CALL LIGHT IN REACH. WILL CONTINUE TO MONITOR AND REPORT TO ONCOMING RN.
--- NOTE | 2021-11-01 05:49 | NUR ---
CALLED HOSPITALIST RE: HGB 6.8. DR. Palumbo TO PUT IN ORDERS FOR 1 UNIT OF BLOOD.
[2021-11-01 15:18] LABS: Hematocrit 27.4 % (33.0-51.0); Hemoglobin 8.8 g/dL (11.5-16.0)
[2021-11-01 15:44] LABS: Magnesium, Blood 1.7 mg/dL (1.6-2.4); Phosphorus, Blood 4.3 mg/dL (2.5-4.9)
--- NOTE | 2021-11-01 18:04 | NUR ---
SHIFT SUMMARY PT HAS BEEN RESTING IN BED FOR A MAJORITY OF THE DAY. PT HAS BEEN INDEPENDENT IN ROOM AND HAS CALLED APPROPRIATELY FOR ASSISTANCE. PT HAS MANAGED THEIR ILEOSTOMY INDEPENDENTLY, PT APPEARS TO BE MILDLY EMBARASSED ABOUT IT. SBP HAS SLOWLY LOWERED THROUGHOUT THE DAY FROM 125-106. HEART RATE OF 93-119. PT TOLERATED TRANSFUSION OF ONE UNIT PRBCS WELL. PT APPEARED TO HAVE MORE ENERGY POST TRANSFUSION AND THEIR PALLOR IMPROVED. PT DENIED ANY C/O PAIN/DISCOMFORT THROUGHOUT THE DAY.
--- NOTE | 2021-11-01 23:17 | NUR ---
CARE ASSUMPTION: PATIENT RESTING IN BED, STATES SHE DID NOT RECEIVE LIDOCAINE PATCH TODAY AND THAT IT WASN'T OFFERED. EMAR DOCUMENTATION STATES ITW GIVEN. PATIENT COLOR IMPROVED FROM THIS AM AND PATIENT REPORTS FEELING BETTER SINCE THE UNIT OF PRBCS WAS GIVEN THIS MORNING. VS WNL, DENIES SOB, PAIN, OR DISCOMFORT. BED LOW WITH CALL LIGHT IN PLACE.
[2021-11-02 04:30] LABS: BASOPHILS ABSOLUTE AUTO 0.04 K/mm3 (0.00-0.23); BASOPHILS PERCENT AUTO 1 % (0-2); EOSINOPHILS ABSOLUTE AUTO 0.19 K/mm3 (0.00-0.68); EOSINOPHILS PERCENT AUTO 2 % (0-6); Hematocrit 25.6 % (33.0-51.0); Hemoglobin 8.3 g/dL (11.5-16.0); IMMATURE GRAN ABSOLUTE AUTO 0.18 K/mm3 (0.00-0.10); IMMATURE GRAN PERCENT AUTO 2 % (0-1); LYMPHOCYTES ABSOLUTE AUTO 0.73 K/mm3 (0.84-5.20); LYMPHOCYTES PERCENT AUTO 8 % (21-46); MONOCYTES ABSOLUTE AUTO 0.67 K/mm3 (0.16-1.47); MONOCYTES PERCENT AUTO 8 % (4-13); Mean Corpuscular HGB 28.4 pg (26.0-34.0); Mean Corpuscular HGB Conc 32.4 g/dL (31.5-36.5); Mean Corpuscular Volume 88 fL (80-100); Mean Platelet Volume 9.5 fL (9.1-12.4); NEUTROPHILS ABSOLUTE AUTO 7.03 K/mm3 (1.96-9.15); NEUTROPHILS PERCENT AUTO 80 % (41-73); Platelet Count 216 K/mm3 (150-400); RDW Coefficient Variation 15.9 % (11.7-14.2); RDW Standard Deviation 50.9 fL (35.1-46.3); Red Blood Cell Count 2.92 M/mm3 (3.80-5.20); White Blood Cell Count 8.84 K/mm3 (4.00-11.30)
[2021-11-02 04:45] LABS: Albumin, Blood 1.7 g/dL (3.4-5.0); Anion Gap 9 mmol/L (6-16); Blood Urea Nitrogen 12 mg/dL (8-24); CO2, Blood 25 mmol/L (21-32); Calcium, Blood 7.3 mg/dL (8.5-10.1); Chloride, Blood 99 mmol/L (98-108); Glomerular Filtration Rate 82 (60-); Glucose, Blood 123 mg/dL (70-99); Magnesium, Blood 1.3 mg/dL (1.6-2.4); Phosphorus, Blood 2.5 mg/dL (2.5-4.9); Sodium, Blood 133 mmol/L (136-145)
--- NOTE | 2021-11-02 05:47 | NUR ---
SHIFT SUMMARY: PATIENT DENIES CHEST PAIN, SOB, OR OTHER DISCOMFORT. REPORTED A HEADACHE AROUND 0100 WHICH TYLENOL RELIEVED. INDEPENDENT IN ROOM AND MANAGES ILEOSTOMY BAG HERSELF. POTASSIUM 3.0 THIS AM - CALL PLACED TO RESIDENT AT 0520 AND AWAITING NEW ORDERS. PATIENT RESTING IN BED. BED LOW AND CALL LIGHT IN REACH. WILL CONTINUE TO MONITOR AND REPORT TO ONCOMING RN.
--- NOTE | 2021-11-02 09:07 | NUR ---
MEDICATION NOTE K-PHOS NEUTRAL NOT SENT FROM PHARMACY YET, WILL MONITOR FOR ARRIVAL AND ADMINISTER.
[2021-11-02 09:55] LABS: Stool Occult Bld Immuno 1 Positive (NEGATIVE)
[2021-11-02] MEDS ORDERED: MAGNESIUM OXID400 M1 PO (11:42)
[2021-11-02] MEDS ORDERED: K-Phos Origina500 MG PO (11:43)
[2021-11-02] MEDS ORDERED: MIRALAX17 GM PO (11:44)
--- NOTE | 2021-11-02 14:16 | NUR ---
DISCHARGE NOTE PT WAS ALERT AND ORIENTED UPON DISCHARGE AND VITAL SIGNS WERE STABLE. THIS NURSE WENT OVER DISCHARGE INSTRUCTIONS INCLUDING FOLLOW UP APPOINTMENTS, MEDICATIONS TO DISCONTINUE, AND NEW MEDICATION INSTRUCTIONS WITH THE PATIENT AND HER DAUGHTER, EDUCATION WENT HOME WITH THE PT WELL ALL OF PERSONAL BELONGINGS. PT LEFT PCU AT 1417 VIA WHEELCHAIR AND WAS ESCORTED BY DEMETRI PEDRO AND HER DAUGHTER. SHE WAS ON ROOM AIR. ANABEL SRIVASTAVA RN REMOVED TRIALYSIS CATHETER PRIOR TO DISCHARGE.
== END 2021-11-02 14:16 | disposition home health service (06) | DRG 673 ==
LOC: ER 11:57 → PCU 16:25
PROVIDERS: Emergency Medicine; Internal Medicine; Internal Medicine Nephrology; ADMIT Internal Medicine
PROC: 0JH63XZ Insertion of Tunneled Vascular Access Device into Chest Subcutaneous Tissue and Fascia, Percutaneous Approach (ICD-10-PCS; 2021-10-28)
PROC: 02HV33Z Insertion of Infusion Device into Superior Vena Cava, Percutaneous Approach (ICD-10-PCS; 2021-10-28)
PROC: B548ZZA Ultrasonography of Superior Vena Cava, Guidance (ICD-10-PCS; 2021-10-28)
PROC: 5A1D70Z Performance of Urinary Filtration, Intermittent, Less than 6 Hours Per Day (ICD-10-PCS; 2021-10-28)
PROC: 8E0ZXY6 Isolation (ICD-10-PCS; 2021-10-28)
PROC: 30233N1 Transfusion of Nonautologous Red Blood Cells into Peripheral Vein, Percutaneous Approach (ICD-10-PCS; principal; 2021-11-01)
DX: N17.9 Acute kidney failure, unspecified (principal); U07.1 COVID-19; E46 Unspecified protein-calorie malnutrition; E87.1 Hypo-osmolality and hyponatremia; E87.2 Acidosis; K51.90 Ulcerative colitis, unspecified, without complications; I74.10 Embolism and thrombosis of unspecified parts of aorta; E87.5 Hyperkalemia; E86.0 Dehydration; D63.1 Anemia in chronic kidney disease; E88.09 Other disorders of plasma-protein metabolism, not elsewhere classified; E83.42 Hypomagnesemia; I12.9 Hypertensive chronic kidney disease with stage 1 through stage 4 chronic kidney disease, or unspecified chronic kidney disease; N18.9 Chronic kidney disease, unspecified; E11.22 Type 2 diabetes mellitus with diabetic chronic kidney disease; E83.39 Other disorders of phosphorus metabolism; E83.52 Hypercalcemia; E78.5 Hyperlipidemia, unspecified; D72.828 Other elevated white blood cell count; Z68.28 Body mass index [BMI] 28.0-28.9, adult; Z93.2 Ileostomy status; Z87.440 Personal history of urinary (tract) infections; Z87.19 Personal history of other diseases of the digestive system; Z98.890 Other specified postprocedural states; Z93.3 Colostomy status; Z88.6 Allergy status to analgesic agent; Z91.018 Allergy to other foods; Z79.01 Long term (current) use of anticoagulants; Z79.82 Long term (current) use of aspirin; Z79.899 Other long term (current) drug therapy; Z22.322 Carrier or suspected carrier of Methicillin resistant Staphylococcus aureus
CPT/HCPCS: 36415; 36556; 71045; 74176; 80048; 80053; 80069; 81001; 82274; 82947; 83605; 83735; 84100; 84484; 85014; 85018; 85025; 86850; 86900; 86901; 86923; 87077; 87086; 87147; 87186; 93005; 93010; 96361; 96365; 96366; 96375; 99285-25; A9270; C1752; C9113; J0610; J1815; J1940; J3475; J3480; J7030; J7040; J7050; J7060; J7070; J7512; J7799; P9016

== ENCOUNTER → 2021-11-29 | Outpatient (CLI) | payer OTHER ==
[~2021-11-29] MED LIST changes: +K-Phos Origina500 MG PO; +MAGNESIUM OXID400 M1 PO; +MIRALAX17 GM PO
[2021-11-30 15:59] LABS: Protein, Urine Quantitative 17.3 mg/dL (0.0-11.9)
== END | disposition home or self-care (01) ==
LOC: LAB SHORT 09:15
PROVIDERS: Family Medicine
DX: R80.9 Proteinuria, unspecified (principal)
CPT/HCPCS: 81050; 84156

== ENCOUNTER → 2022-08-19 | Outpatient (CLI) | payer OTHER ==
[2022-08-19 19:45] LABS: Percent Saturation 25.1 % (15.0-50.0)
[2022-08-19 19:46] LABS: Albumin, Blood 3.6 g/dL (3.4-5.0); Albumin/Globulin Ratio 0.9 (0.8-1.8); Bilirubin, Total 0.1 mg/dL (0.1-1.0); Bun/Creatinine Ratio 28.9 (12.0-20.0); Calcium, Blood 9.4 mg/dL (8.5-10.1); Creatinine, Blood 1.35 mg/dL (0.40-1.00); Globulin, Blood 3.8 g/dL (2.2-4.0); Phosphorus, Blood 2.6 mg/dL (2.5-4.9); Potassium, Blood 4.2 mmol/L (3.5-5.5); Total Protein, Blood 7.4 g/dL (6.4-8.2)
== END | disposition home or self-care (01) ==
LOC: LAB 16:01 → LAB SHORT 16:01
PROVIDERS: Internal Medicine Hematology & Oncology
DX: D47.2 Monoclonal gammopathy (principal); D50.9 Iron deficiency anemia, unspecified
CPT/HCPCS: 80053; 82728; 83540; 83550; 84100

== ENCOUNTER → 2022-11-08 | Outpatient (CLI) | payer OTHER ==
[2022-11-08 19:59] LABS: Albumin, Blood 3.7 g/dL (3.4-5.0); Anion Gap 8 mmol/L (6-16); Blood Urea Nitrogen 33 mg/dL (8-24); Bun/Creatinine Ratio 25.4 (12.0-20.0); CO2, Blood 24 mmol/L (21-32); Calcium, Blood 9.6 mg/dL (8.5-10.1); Chloride, Blood 103 mmol/L (98-108); Ferritin, Serum 1204 ng/mL (8-252); Glomerular Filtration Rate 45 (60-); Glucose, Blood 167 mg/dL (70-99); Iron Serum 134 ug/dL (50-170); Percent Saturation 46.4 % (15.0-50.0); Phosphorus, Blood 2.9 mg/dL (2.5-4.9); Potassium, Blood 4.7 mmol/L (3.5-5.5); Sodium, Blood 135 mmol/L (136-145); Total Iron Binding Capacity 289 ug/dL (250-450); Uric Acid, Blood 9.9 mg/dL (2.6-6.0)
== END ==
LOC: LAB 14:00 → LAB SHORT 14:00
PROVIDERS: Internal Medicine Nephrology
DX: N18.4 Chronic kidney disease, stage 4 (severe) (principal); D63.1 Anemia in chronic kidney disease; N25.81 Secondary hyperparathyroidism of renal origin; E55.9 Vitamin D deficiency, unspecified; E78.00 Pure hypercholesterolemia, unspecified; R76.9 Abnormal immunological finding in serum, unspecified; R94.5 Abnormal results of liver function studies; R94.6 Abnormal results of thyroid function studies; D51.8 Other vitamin B12 deficiency anemias; D52.8 Other folate deficiency anemias
CPT/HCPCS: 80069; 82533; 82728; 83540; 83550; 84443; 84550; 85018

== ENCOUNTER → 2022-11-11 | Outpatient (CLI) | payer OTHER ==
[2022-11-11 17:19] LABS: Creatinine Urine 61.7 mg/dL (27.00-270.00); Protein, Urine Quantitative 7.6 mg/dL (0.0-11.9)
[2022-11-11 17:21] LABS: Microalbumin, Urine Quant. 22.3 mg/L (0.000-20.000)
== END | disposition home or self-care (01) ==
LOC: LAB SHORT 07:02 → LAB FUT 11-09 14:20
PROVIDERS: Internal Medicine Nephrology
DX: N18.4 Chronic kidney disease, stage 4 (severe) (principal); D63.1 Anemia in chronic kidney disease; N25.81 Secondary hyperparathyroidism of renal origin; E55.9 Vitamin D deficiency, unspecified; E78.00 Pure hypercholesterolemia, unspecified; D51.8 Other vitamin B12 deficiency anemias; D52.8 Other folate deficiency anemias; D50.9 Iron deficiency anemia, unspecified; R76.9 Abnormal immunological finding in serum, unspecified; R94.5 Abnormal results of liver function studies; R94.6 Abnormal results of thyroid function studies
CPT/HCPCS: 81050; 82043; 82570; 84156

== ENCOUNTER → 2023-12-28 | Outpatient (CLI) | payer OTHER ==
[~2023-12-28] MED LIST changes: +BUDESONIDE EC3 M1 PO; +BUDESONIDE EC3 M6 PO; +FERSU300 PO; +FUROSEMIDE20 MG PO; +LISI5 PO; +Lovastatin10 MG PO; +METOPROLOL TART25 MG PO; +MOUNJARO5 MG/0.5 M SC
[2023-12-28 11:23] LABS: Creatinine Urine 84.5 mg/dL (27.00-270.00); Microalbumin, Urine Quant. 7.73 mg/L (0.000-20.000); Protein, Urine Quantitative 10.2 mg/dL (0.0-11.9)
== END ==
LOC: LAB SHORT 09:41 → LAB 09:41
PROVIDERS: Internal Medicine Nephrology
DX: N18.30 Chronic kidney disease, stage 3 unspecified (principal); D63.1 Anemia in chronic kidney disease; N25.81 Secondary hyperparathyroidism of renal origin; E55.9 Vitamin D deficiency, unspecified; R76.9 Abnormal immunological finding in serum, unspecified; R94.5 Abnormal results of liver function studies; R94.6 Abnormal results of thyroid function studies; G60.9 Hereditary and idiopathic neuropathy, unspecified; D51.8 Other vitamin B12 deficiency anemias; D52.8 Other folate deficiency anemias; D50.9 Iron deficiency anemia, unspecified; E78.00 Pure hypercholesterolemia, unspecified
CPT/HCPCS: 36415; 80053; 81050; 82043; 82248; 82530; 82570; 84100; 84156; 84550

== ENCOUNTER 2024-03-27 13:48 | Emergency (ER) | payer OTHER ==
[~2024-03-27] VITALS: Ht 154.9 cm; Wt 59.9 kg
[2024-03-27] MEDS ORDERED: OXYC5 PO (14:11)
[2024-03-27] MEDS ORDERED: NS 1,000 ML IV SCH ×3 (14:20→19:10)
[2024-03-27] MEDS ORDERED: Vancomycin HCL 1,500 MG in NS 250 ML IV ONE (14:30)
[2024-03-27] MEDS ORDERED: Piperacillin/Tazobactam Sod 4.5 GM in NS 100 ML IV ONE (14:30)
[2024-03-27 14:40] LABS: BASOPHILS ABSOLUTE AUTO 0.06 K/mm3 (0.00-0.23); BASOPHILS PERCENT AUTO 0 % (0-2); EOSINOPHILS ABSOLUTE AUTO 0.02 K/mm3 (0.00-0.68); EOSINOPHILS PERCENT AUTO 0 % (0-6); Hematocrit 34.6 % (33.0-51.0); Hemoglobin 11.5 g/dL (11.5-16.0); IMMATURE GRAN ABSOLUTE AUTO 0.29 K/mm3 (0.00-0.10); IMMATURE GRAN PERCENT AUTO 2 % (0-1); LYMPHOCYTES ABSOLUTE AUTO 1.18 K/mm3 (0.84-5.20); LYMPHOCYTES PERCENT AUTO 7 % (21-46); MONOCYTES ABSOLUTE AUTO 1.61 K/mm3 (0.16-1.47); MONOCYTES PERCENT AUTO 10 % (4-13); Mean Corpuscular HGB 28.3 pg (26.0-34.0); Mean Corpuscular HGB Conc 33.2 g/dL (31.5-36.5); Mean Corpuscular Volume 85 fL (80-100); Mean Platelet Volume 9.3 fL (9.1-12.4); NEUTROPHILS ABSOLUTE AUTO 13.57 K/mm3 (1.96-9.15); NEUTROPHILS PERCENT AUTO 81 % (41-73); NRBC ABSOLUTE 0.07 K/mm3 (0.00-0.02); NRBC Auto 0.4 /100 WBC (0.0-0.2); Platelet Count 814 K/mm3 (150-400); RDW Coefficient Variation 17.3 % (11.7-14.2); RDW Standard Deviation 52.2 fL (35.1-46.3); Red Blood Cell Count 4.07 M/mm3 (3.80-5.20); White Blood Cell Count 16.73 K/mm3 (4.00-11.30)
[2024-03-27 15:26] LABS: International Normalized Ratio 1.06; Prothrombin Time Results 11.3 Sec (9.7-11.5)
[2024-03-27 15:51] LABS: Magnesium, Blood 1.7 mg/dL (1.6-2.4)
[2024-03-27 15:56] LABS: Albumin, Blood 2.5 g/dL (3.4-5.0); Albumin/Globulin Ratio 0.5 (0.8-1.8); Bilirubin, Total 0.8 mg/dL (0.1-1.0); Bun/Creatinine Ratio 13.2 (12.0-20.0); Creatinine, Blood 9.2 mg/dL (0.40-1.00); Globulin, Blood 4.7 g/dL (2.2-4.0); Potassium, Blood 7.2 mmol/L (3.5-5.5); Total Protein, Blood 7.2 g/dL (6.4-8.2)
[2024-03-27 15:57] LABS: Phosphorus, Blood 8.5 mg/dL (2.5-4.9)
[2024-03-27] MEDS ORDERED: Calcium Gluconate 10% 100 MG/ML INJ IV ONE (16:00)
[2024-03-27] MEDS ORDERED: Albuterol 2.5 MG/3 ML VIAL INH SCH (16:00)
[2024-03-27] MEDS ORDERED: Sodium Zirconium Cyclosilicate 10 GM Packet PO ONE (16:05)
[2024-03-27] MEDS ORDERED: CALCIUM GLUC IN NACL, ISO-OSM 50 ML IV ONE (16:15)
[2024-03-27] MEDS ORDERED: Dextrose 50% 50 ML Syringe IV ONE (16:25)
[2024-03-27] MEDS ORDERED: Insulin Regular 100 Unit/ML 1ML Dose IV ONE (16:25)
[2024-03-27] MEDS ORDERED: Dextrose 50% 50 ML Vial IV ONE (16:30)
[2024-03-27 17:03] LABS: Calcium, Ionized (POC) 1.11 mmol/L (1.10-1.46); Chloride (POC) 95 mmol/L (98-108); Creatinine (POC) 9.5 mg/dL (0.6-1.0); Glucose (ISTAT POC) 99 mg/dL (70-99); Hemoglobin (POC) 8.8 g/dL (12.0-16.0); Potassium (POC) 6.2 mmol/L (3.5-5.5); Sodium (POC) 120 mmol/L (135-148); Total CO2 (POC) 14 mmol/L (21-32)
[2024-03-27 18:14] LABS: Calcium, Ionized (POC) 1.17 mmol/L (1.10-1.46); Chloride (POC) 96 mmol/L (98-108); Creatinine (POC) 9.9 mg/dL (0.6-1.0); Glucose (ISTAT POC) 164 mg/dL (70-99); Hemoglobin (POC) 9.2 g/dL (12.0-16.0); Potassium (POC) 5.1 mmol/L (3.5-5.5); Sodium (POC) 122 mmol/L (135-148); Total CO2 (POC) 13 mmol/L (21-32)
[2024-03-27] MEDS ORDERED: Ondansetron HCl 2 MG / ML 2ML Vial IV PRN (19:05)
[2024-03-27 19:52] LABS: Source, Urine Clean Catch
[2024-03-27 19:56] LABS: Appearance, Urine Hazy (Clear); Bilirubin, Urine Neg (Neg); Blood, Urine 1+ (Neg); Color, Urine Yellow (P-Yellow); Glucose Qualitative, Urine Neg (Neg); Ketones, Urine Neg (Neg); Leukocyte Esterase, Urine 1+ (Neg); Nitrite, Urine Neg (Neg); Protein, Urine 2+ (Neg); Specific Gravity, Urine 1.015 (1.003-1.022); Urobilinogen, Urine NORM (Normal)
[2024-03-27] MEDS ORDERED: Lactated Ringer's 1,000 ML IV ONE (20:00)
[2024-03-27 20:06] LABS: Granular Casts 0-2 /lpf (0)
[2024-03-27 20:07] LABS: Amorphous Light (0-Heavy); Bacteria Many /hpf; Mucus Light (0-Heavy); Red Blood Cells, Urine 0-2 /hpf (0-2); Squamous Epithelial Cells Few /hpf (Few)
[2024-03-27 20:08] LABS: Calcium Oxalate Crystals Mod /hpf
[2024-03-27 20:24] LABS: Base Excess Venous -20.1 mmol/L; Bicarbonate Venous 10.7 mmol/L (24.0-30.0); PCO2 Venous 23.4 mmHg (38-42)
[2024-03-27 20:26] LABS: pH Blood Venous 7.17 (7.34-7.37)
[2024-03-27 20:54] LABS: Creatinine, Blood 7.91 mg/dL (0.40-1.00); Potassium, Blood 5.3 mmol/L (3.5-5.5)
[2024-03-27] MEDS ORDERED: Cefepime HCl 1,000 MG in NS 100 ML IV SCH (21:00)
[2024-03-27] MEDS ORDERED: MetroNIDAZOLE 500MG/NS 100 ml 100 ML IV SCH (21:00)
[2024-03-27] MEDS ORDERED: Sodium Bicarb 8.4% Inj 150 MEQ in Dextrose 5% 1,000 ML IV SCH (21:00)
[2024-03-27 22:50] VITALS: BP 110/57
[2024-03-28] MEDS ORDERED: Insulin Human Lispro 100 Units/ML 3ML Syringe SC SCH
== END 2024-03-27 23:08 | disposition short-term general hospital (02) ==
LOC: ER 13:48
PROVIDERS: Nurse Practitioner Acute Care; Student in an Organized Health Care Education/Training Program
DX: A41.9 Sepsis, unspecified organism (principal); R65.21 Severe sepsis with septic shock; N17.9 Acute kidney failure, unspecified; E11.9 Type 2 diabetes mellitus without complications; I10 Essential (primary) hypertension; E78.5 Hyperlipidemia, unspecified; Z87.891 Personal history of nicotine dependence; Z79.51 Long term (current) use of inhaled steroids; Z88.5 Allergy status to narcotic agent; Z88.6 Allergy status to analgesic agent; Z91.018 Allergy to other foods; Z88.8 Allergy status to other drugs, medicaments and biological substances
CPT/HCPCS: 36415; 36556; 51702; 71045; 74177; 80047; 80048; 80053; 81001; 82803; 83605; 83735; 84100; 84145; 85014; 85025; 85610; 85730; 86850; 86900; 86901; 87086; 93005; 93010; 94644; 94664; 96361; 96365; 96366; 96367; 96368; 96375; 99291-25; 99292; A9270; C1751; J0612; J0692; J1815; J2543; J3370; J7030; J7050; J7060; J7070; J7120; J7799; Q9967

== ENCOUNTER → 2024-04-15 | Outpatient (CLI) | payer OTHER ==
[~2024-04-15] MED LIST changes: +OXYC5 PO
[2024-04-15 12:58] LABS: Creatinine Urine 47.1 mg/dL (27.00-270.00); Microalbumin, Urine Quant. 12.5 mg/L (0.000-20.000); Protein, Urine Quantitative 6.5 mg/dL (0.0-11.9)
== END | disposition home or self-care (01) ==
LOC: LAB SHORT 07:00 → LAB 07:00 → LAB FUT 04-12 13:40
PROVIDERS: Internal Medicine Nephrology
DX: N18.30 Chronic kidney disease, stage 3 unspecified (principal); D63.1 Anemia in chronic kidney disease; N25.81 Secondary hyperparathyroidism of renal origin; E55.9 Vitamin D deficiency, unspecified; E29.1 Testicular hypofunction; R76.9 Abnormal immunological finding in serum, unspecified; R94.5 Abnormal results of liver function studies; R94.6 Abnormal results of thyroid function studies
CPT/HCPCS: 82043; 82570; 84156